=== PATIENT | female | born 1935 | race Caucasian/White ===

== ENCOUNTER 2017-06-24 11:40 | Inpatient (IN) | payer MEDICARE, BC ==
[~2017-06-24] VITALS: Ht 167.6 cm; Wt 64.0 kg
[~2017-06-24 11:40] MED LIST: AMITRIPTYLINE H25 MG PO; ASPIRIN CHEW81 MG PO; CLONAZEPAM0.25 MG PO; FEOSOL45 MG PO; GABAPENTIN100 MG PO; LASIX20 MG PO; LEXAPRO10 MG PO; LOSARTAN POTASS25 MG PO; LOSARTAN-HCTZ1 EACH PEG; MIRALAX17 GM PO; NAMENDA10 MG PO; NEXIUM40 MG PO; NIFEDIPINE ER30 M1 PO; PANTOPRAZOLE SO40 MG PO; SIMVASTATIN40 MG PO; VITAMIN B-121000 MCG PO; alprazolam; furosemide
[2017-06-24] MEDS ORDERED: MORPHINE SULFATE 2 MG/ML SYR IV STA ×2 (11:42→13:10)
[2017-06-24] MEDS ORDERED: SODIUM CHLORIDE 0.9% 1000ML 1,000 ML IV STA (11:42)
[2017-06-24] MEDS ORDERED: ONDANSETRON HCL INJ 2 MG/ML VIAL IV STA (11:42)
[2017-06-24 12:09] LABS: BASOPHILS % 0.3 % (0.0-1.0); EOSINOPHILS # (AUTO) 0.1 (0.0-0.4); EOSINOPHILS % 0.8 % (0.0-6.0); HEMATOCRIT 36.6 % (34.2-44.1); HEMOGLOBIN 11.9 g/dL (12.0-16.0); LYMPHOCYTES # (AUTO) 0.8 (1.0-3.2); LYMPHOCYTES % 8.1 % (18.0-39.1); MEAN CORPUSCULAR HEMOGLOBIN 26.6 pg (28-32); MEAN CORPUSCULAR HGB CONC 32.5 g/dL (31-35); MEAN CORPUSCULAR VOLUME 81.9 fL (81-99); MONOCYTES # (AUTO) 0.5 (0.2-0.8); MONOCYTES % 4.5 % (4.4-11.3); NEUTROPHILS # (AUTO) 8.5 (2.1-6.9); NEUTROPHILS % 85.9 % (38.7-80.0); PLATELET COUNT 261 x10e3/uL (140-360); RED BLOOD COUNT 4.47 x10e6/uL (3.6-5.1); RED CELL DISTRIBUTION WIDTH 21.4 % (11.7-14.4)
[2017-06-24 12:17] LABS: INR 1.03; PROTHROMBIN TIME 12.7 seconds (11.9-14.5)
[2017-06-24 12:18] LABS: PARTIAL THROMBOPLASTIN TIME 30.8 seconds (23.8-35.5)
[2017-06-24 12:26] LABS: ALANINE AMINOTRANSFERASE 20 IU/L (0-55); ALBUMIN 3.7 g/dL (3.5-5.0); ALBUMIN/GLOBULIN RATIO 1.3 (0.8-2.0); ALKALINE PHOSPHATASE 80 IU/L (40-150); AMORPHOUS SEDIMENT,URINE FEW (FEW); BACTERIA,URINE FEW /HPF; BILIRUBIN,URINE NEGATIVE (NEGATIVE); BLOOD UREA NITROGEN 11 mg/dL (7-26); BUN/CREATININE RATIO 14 (6-25); CALCIUM 9.3 mg/dL (8.4-10.2); CARBON DIOXIDE 29 mmol/L (22-29); CHLORIDE 95 mmol/L (98-107); CLARITY,URINE CLEAR (CLEAR); COLOR,URINE YELLOW (YELLOW); CREATINE KINASE 166 IU/L (29-168); CREATININE, SERUM 0.79 mg/dL (0.57-1.11); EPITHELIAL CELLS,URINE RARE /LPF; EST GLOMERULAR FILTRATION RATE > 60 ML/MIN (60-); GLUCOSE 99 mg/dL (74-118); KETONES,URINE NEGATIVE (NEGATIVE); LEUKOCYTE ESTERASE ,URINE NEGATIVE (NEGATIVE); NITRITE,URINE NEGATIVE (NEGATIVE); PROTEIN,URINE DIPSTICK NEGATIVE (NEGATIVE); RBC,URINE 0-5 /HPF (0-5); SODIUM 132 mmol/L (136-145); URINE UROBILINOGEN 0.2 mg/dL (0.2 - 1); WBC,URINE (MAN) 0-5 /HPF (0-5)
--- NOTE | 2017-06-24 12:57 | Diagnostic Imaging Report ---
PROCEDURE:HIP LEFT 2-3 VW (+/- PELVIS) COMPARISON:Abdominal x ray on 06/22/16 INDICATIONS:FALL, LEFT HIP FRACTURE FINDINGS: Limited by body habitus. See conclusion. CONCLUSION: Left femoral neck base fracture with mild superior displacement. Dictated by: Emanuel Kohli M.D. on 06/24/2017 at 12:58 Electronically approved by: Emanuel Kohli M.D. on 06/24/2017 at 12:58
[2017-06-24] MEDS ORDERED: SODIUM CHLORIDE FLUSH 10 ML SYR INJ PRN (13:00)
--- OUTSIDE RECORDS SUMMARY | 2017-06-24 13:41 | XMS REPORT ---
[facility] Address Unknown Phone Unavailable Care Team Providers Care Last Putter Away Name Role Phone [facility] Unavailable Unavailable Problems This patient has no known problems. Allergies, Adverse Reactions, Alerts This patient has no known allergies or adverse reactions. Medications This patient has no known medications. Results Test Description Test Time Test Comments Text Results Atomic Results Result Comments HIP LEFT 2-3 VW (+/- PELVIS) [place] [address] Patient Name: MICHAEL CHADWICK MR #: [id number] : 1935 Age/Sex: 82/F Req #: [id number] Adm Physician: Ordered by: AVA WILSON CLIENT CARE MANAGER Report #: [id number] Location: ER Room/Bed: Procedure: [id number] DX/HIP LEFT 2-3 VW (+/- PELVIS) Exam Date: Exam Time: REPORT STATUS: Signed PROCEDURE: HIP LEFT 2 -3 VW (+/- PELVIS) COMPARISON: Abdominal x ray on 06/22/16 INDICATIONS: FALL, LEFT HIP FRACTURE FINDINGS: Limited by body habitus. See conclusion. CONCLUSION: Left femoral neck base fracture with mild superior displacement. Dictated by: Emanuel Coleman M.D. on 06/24/2017 at 12:58 Electronically approved by: Emanuel Coleman M.D. on 06/24/2017 at 12:58 Dictated By: EMANUEL COLEMAN MD [id number] Transcribed By: KARO on 06/24/17 1255 COPY TO: AVA WILSON NP
[2017-06-24] MEDS: ONDANSETRON HCL INJ 2 MG/ML VIAL IV PRN ×2 (16:45→21:00)
[2017-06-24] MEDS: MORPHINE SULFATE 2 MG/ML SYR IV PRN ×2 (16:46→21:00)
[2017-06-24] MEDS ORDERED: VANCOMYCIN HCL 1 GM in SODIUM CHLORIDE 0.9% 250ML 250 ML IV SCH ×4 (17:00)
[2017-06-24] MEDS ORDERED: QUETIAPINE FUMA25 MG PO (19:15)
[2017-06-24] MEDS ORDERED: LASIX20 MG PO (19:15)
[2017-06-24] MEDS ORDERED: CLONAZEPAM1 MG PO (19:15)
[2017-06-24] MEDS ORDERED: DIVALPROEX SOD250 MG PO (19:15)
[2017-06-24 20:35] VITALS: BP 180/74
[2017-06-24] MEDS ORDERED: ESCITALOPRAM OXALATE 10 MG TAB PO SCH (22:00)
[2017-06-24 22:16] VITALS: BP 180/74
[2017-06-24 22:31] VITALS: BP 180/74
[2017-06-24] MEDS: DIVALPROEX SODIUM 250 MG TAB...DR PO SCH (22:59)
[2017-06-24] MEDS: ESCITALOPRAM OXALATE 10 MG TAB PO SCH (22:59)
[2017-06-24] MEDS: MEMANTINE 10 MG TAB PO SCH (22:59)
[2017-06-24] MEDS: CLONAZEPAM 1 MG TAB PO SCH (22:59)
[2017-06-24] MEDS: QUETIAPINE FUMARATE 25 MG TAB PO SCH (22:59)
[2017-06-25] VITALS (7 sets, daily range): BP systolic 146–173; BP diastolic 62–70
[2017-06-25] MEDS: ONDANSETRON HCL INJ 2 MG/ML VIAL IV PRN (05:45)
[2017-06-25] MEDS: MORPHINE SULFATE 2 MG/ML SYR IV PRN (05:45)
[2017-06-25] MEDS: MEMANTINE 10 MG TAB PO SCH ×2 (09:00→17:15)
[2017-06-25] MEDS: QUETIAPINE FUMARATE 25 MG TAB PO SCH ×3 (09:00→20:15)
[2017-06-25] MEDS: DIVALPROEX SODIUM 250 MG TAB...DR PO SCH ×2 (09:00→17:15)
[2017-06-25] MEDS: CLONAZEPAM 1 MG TAB PO SCH ×2 (09:00→14:31)
[2017-06-25 09:49] LABS: ANION GAP 9.1 mmol/L (8-16); BLOOD UREA NITROGEN 10 mg/dL (7-26); BUN/CREATININE RATIO 15 (6-25); CALCIUM 8.7 mg/dL (8.4-10.2); CARBON DIOXIDE 29 mmol/L (22-29); CHLORIDE 99 mmol/L (98-107); CREATININE, SERUM 0.67 mg/dL (0.57-1.11); EST GLOMERULAR FILTRATION RATE > 60 ML/MIN (60-); GLUCOSE 108 mg/dL (74-118); MAGNESIUM 1.7 MG/DL (1.3-2.1); POTASSIUM 4.1 mmol/L (3.5-5.1); SODIUM 133 mmol/L (136-145)
[2017-06-25] MEDS ORDERED: ACETAMINOPHEN 325 MG TAB PO PRN (10:00)
[2017-06-25] MEDS ORDERED: ACETAMINOPHEN 325 MG SUPP PR PRN (10:00)
[2017-06-25] MEDS ORDERED: ROPIVACAINE 246.25 MG, EPINEPHRINE HCL 1:1000 0.5 MG, CLONIDINE HCL 0.08 MG, KETOROLAC ... INJ NR ×5 (11:30)
[2017-06-25] MEDS ORDERED: TRANEXAMIC ACID 1,000 MG/10 ML ML ONE (11:43)
[2017-06-25] MEDS ORDERED: MUPIROCIN 2% OINT 22 GM TUBE ONE (11:43)
[2017-06-25] MEDS ORDERED: BACITRACIN 50,000 UNIT VIAL ONE (11:43)
[2017-06-25] MEDS ORDERED: VANCOMYCIN 1GM/NS 250 ML 250 ML ONE (12:13)
--- NOTE | 2017-06-25 12:22 | Consultation ---
DATE OF CONSULTATION: June 25, 2017 CHIEF COMPLAINT: Left hip pain. HISTORY OF PRESENT ILLNESS: This patient is a medically frail 82-year-old female who complains of left hip pain. She has a history of significant dementia and the history of present illness is obtained from the . She was reportedly fell, found on the floor by her yesterday morning. He thinks she fell out of bed. She complained of left hip pain and was unable to get up and bear weight on the left leg. She was brought into [facility] ER and had x-rays showing a left hip fracture. Orthopedics was consulted. PAST MEDICAL HISTORY: Diverticulosis, GERD, history of dementia, and hypertension. PAST SURGICAL HISTORY: Colon resection and hernia repair. MEDICATIONS: See MAY. ALLERGIES: PATIENT HAS ALLERGIES TO PENICILLIN, AZITHROMYCIN, CEPHALEXIN, MOMETASONE, TRIAMCINOLONE, SULFA. SOCIAL HISTORY: Patient lives with her . She uses a walker to ambulate. She denies smoking or drinking. PHYSICAL EXAMINATION GENERAL: This is a frail elderly female. She exhibits signs of advanced dementia. She has trouble answering any questions. Her does most of the talking. EXTREMITIES: Inspection of her left hip shows mild swelling in the upper thigh. There is no bruising or skin changes. Any attempts at passive range of motion in the left hip elicit pain. Further exam was deferred due to her advanced dementia. IMAGING: X-rays of her left hip were obtained and show a displaced femoral neck fracture. ASSESSMENT AND PLAN: This is a medically frail 82-year-old female with a left hip fracture. The findings and options were discussed with the family. The risks and benefits of comfort care, conservative management versus surgical intervention with a left hip hemiarthroplasty were explained. The increased risk given her advanced dementia and risks of increasing dementia with general anesthesia as well as the hip fracture were explained. She used a walker with limited mobility prior to the hip fracture. The possibility that she will need to use a wheelchair going forward was stressed. All the findings and options were discussed with her and both her daughters. After some discussion, they wished to proceed with a left hip hemiarthroplasty. All their questions were answered. We will plan on proceeding with a left hip hemiarthroplasty later today. Thank you for the consultation. DICTATED BY: Oscar Peres PA-C Job#: [id number] VAS
[2017-06-25] MEDS ORDERED: ONDANSETRON HCL INJ 2 MG/ML VIAL IV PRN (13:00)
[2017-06-25] MEDS ORDERED: DIPHENHYDRAMINE HCL INJ 50 MG/ML VIAL IM/IV PRN (13:00)
[2017-06-25] MEDS ORDERED: PROMETHAZINE HCL (IM) 25 MG/ML VIAL IM PRN (13:00)
[2017-06-25] MEDS ORDERED: ACETAMINOPHEN 650 MG SUPP PR PRN (13:00)
[2017-06-25] MEDS ORDERED: DOCUSATE SODIUM 100 MG CAP PO PRN (13:00)
[2017-06-25] MEDS ORDERED: KETOROLAC TROMETHAMINE 30 MG/ML VIAL IV PRN (13:00)
--- NOTE | 2017-06-25 13:30 | Operative Report ---
DATE OF PROCEDURE: June 25, 2017 GENERAL OPERATOR: Oscar Peres PA-C The patient was brought to the operating room for induction of anesthesia. Throughout this case, my PA's assistance was necessary for retraction of soft tissue and positioning of the extremity. This allows for efficient and technically successful execution of the operation and is considered medically necessary. PREOPERATIVE DIAGNOSIS: Left femoral neck fracture. POSTOPERATIVE DIAGNOSIS: Left femoral neck fracture. PROCEDURE: Left hip hemiarthroplasty. INDICATIONS: The patient is an 82-year-old lady who has an acute left femoral neck fracture. Her past medical history is significant for advanced dementia. The findings and options have been discussed. The limited benefits of surgical intervention have been discussed. The family state they understand and wish to proceed with surgical intervention. The risks and benefits were further discussed. They stated they understood and wished to proceed. DESCRIPTION OF PROCEDURE: The patient was brought to the operating room and placed under general anesthetic. She was positioned in the right lateral decubitus position. Her left hip was prepped and draped in a sterile manner. A preoperative time out was performed. A direct lateral Hardinge approach was made to the left hip. Abundant subcutaneous edema was encountered. The tensor fascia was split. A self-retaining Charnley retractor was placed. The greater trochanter was noted to have complete avulsion of the gluteus minimus and medius. The hip was brought out into external rotation. The remainder of the anterior capsule was incised and elevated off of the anterior proximal femur. The femoral neck was exposed, and an oscillating saw was used to resect the remainder of the bone. The socket was carefully exposed. A corkscrew was used to remove the femoral head. This was sized at 45 mm. A box cutting osteotome and taper pin reamer were then used to gain entry to the femoral canal. The [employer] Taperloc broaches were impacted into place. A size 8 stem had good canal fill and rotational stability. A standard neck and 45 mm head provided optimal druze of limb length and good stability. The implants were seated, and a final reduction was performed. The hip had been thoroughly irrigated with a shower-tip pulsatile lavage. The anterior capsule was repaired with #2 Ethibond in an interrupted fashion. The remnants of the abductor musculature were repaired to the anterior aspect of the greater trochanter with transosseous stitches. The tensor fascia and gluteal fascia were closed with interrupted #2 Ethibond. The skin was closed with subcuticular Vicryl, Mastisol and Steri-Strips. Estimated blood loss was about 75 mL. At the end of the procedure, all needle and sponge counts were correct. Job#: [id number]
[2017-06-25] MEDS: SODIUM CHLORIDE 0.9% 1000ML 1,000 ML IV SCH ×2 (14:30→19:30)
--- NOTE | 2017-06-25 15:06 | Diagnostic Imaging Report ---
PROCEDURE:X-RAY PELVIS, AP VIEW COMPARISON:left hip radiographs 06/24/2017 INDICATIONS:POST OP HIP LEFT FINDINGS: See impression. CONCLUSION: Interval placement of a left hip prothesis with post-operative changes including swelling and subcutaneous emphysema. No new fractures. Dictated by: Jovany Schaffer M.D. on 06/25/2017 at 15:07 Electronically approved by: Jovany Schaffer M.D. on 06/25/2017 at 15:07
[2017-06-25] MEDS: HYDRALAZINE HCL 20 MG/ML VIAL IV PRN (15:59)
[2017-06-25] MEDS: CELECOXIB 100 MG CAP PO SCH (17:15)
[2017-06-25] MEDS: ESCITALOPRAM OXALATE 10 MG TAB PO SCH (17:15)
[2017-06-25] MEDS: ACETAMINOPHEN 1000 MG/100 ML IV SCH (17:15)
[2017-06-25] MEDS: ASPIRIN 325 MG TAB PO SCH (17:18)
[2017-06-25] MEDS: LOSARTAN POTASSIUM 25 MG TAB PO SCH (17:19)
[2017-06-25] MEDS: VANCOMYCIN 1GM/NS 250 ML 250 ML IV SCH (22:20)
[2017-06-26] VITALS (7 sets, daily range): BP systolic 119–162; BP diastolic 55–81
[2017-06-26] MEDS: ACETAMINOPHEN 1000 MG/100 ML IV SCH ×3 (00:15→12:00)
[2017-06-26] MEDS: HYDRALAZINE HCL 20 MG/ML VIAL IV PRN (06:26)
[2017-06-26 07:04] LABS: BASOPHILS % 0.3 % (0.0-1.0); EOSINOPHILS # (AUTO) 0.4 (0.0-0.4); EOSINOPHILS % 6.8 % (0.0-6.0); HEMATOCRIT 28.4 % (34.2-44.1); HEMOGLOBIN 9.1 g/dL (12.0-16.0); LYMPHOCYTES # (AUTO) 0.6 (1.0-3.2); LYMPHOCYTES % 9.4 % (18.0-39.1); MEAN CORPUSCULAR HEMOGLOBIN 26.8 pg (28-32); MEAN CORPUSCULAR VOLUME 83.5 fL (81-99); MONOCYTES # (AUTO) 0.4 (0.2-0.8); MONOCYTES % 6.7 % (4.4-11.3); NEUTROPHILS # (AUTO) 4.5 (2.1-6.9); NEUTROPHILS % 76.6 % (38.7-80.0); PLATELET COUNT 178 x10e3/uL (140-360); RED CELL DISTRIBUTION WIDTH 21.9 % (11.7-14.4)
[2017-06-26 07:30] LABS: BLOOD UREA NITROGEN 10 mg/dL (7-26); BUN/CREATININE RATIO 15 (6-25); CALCIUM 8.3 mg/dL (8.4-10.2); CARBON DIOXIDE 27 mmol/L (22-29); CHLORIDE 104 mmol/L (98-107); CREATININE, SERUM 0.66 mg/dL (0.57-1.11); EST GLOMERULAR FILTRATION RATE > 60 ML/MIN (60-); GLUCOSE 88 mg/dL (74-118); MAGNESIUM 1.6 MG/DL (1.3-2.1); SODIUM 138 mmol/L (136-145)
[2017-06-26 09:00] LABS: HYPOCHROMASIA SLIGHT; PLATELET ESTIMATE ADEQUATE; PLATELET MORPHOLOGY COMMENT NORMAL; POIKILOCYTOSIS SLIGHT; RBC MORPHOLOGY COMMENT NORMAL
[2017-06-26] MEDS: CELECOXIB 100 MG CAP PO SCH ×2 (09:11→16:44)
[2017-06-26] MEDS: CLONAZEPAM 1 MG TAB PO SCH ×2 (09:11→16:44)
[2017-06-26] MEDS: LOSARTAN POTASSIUM 25 MG TAB PO SCH (09:11)
[2017-06-26] MEDS: MEMANTINE 10 MG TAB PO SCH ×2 (09:11→16:44)
[2017-06-26] MEDS: DIVALPROEX SODIUM 250 MG TAB...DR PO SCH ×2 (09:11→16:44)
[2017-06-26] MEDS: ASPIRIN 325 MG TAB PO SCH ×2 (09:11→16:44)
[2017-06-26] MEDS: VANCOMYCIN 1GM/NS 250 ML 250 ML IV SCH (09:12)
[2017-06-26] MEDS: QUETIAPINE FUMARATE 25 MG TAB PO SCH ×2 (09:12→16:44)
[2017-06-26] MEDS: MORPHINE SULFATE 2 MG/ML SYR IV PRN (09:32)
[2017-06-26] MEDS ORDERED: ACETAMINOPHEN 1000 MG/100 ML IV PRN (13:00)
[2017-06-26] MEDS: ESCITALOPRAM OXALATE 10 MG TAB PO SCH (16:44)
[2017-06-26] MEDS: CALCIUM CARBONATE 500 MG CHEWABLE TABS PO SCH (16:44)
[2017-06-26] MEDS: HYDROCODONE/APAP 5MG-325MG TAB PO PRN (17:53)
[2017-06-27] VITALS (7 sets, daily range): BP systolic 120–147; BP diastolic 54–63
[2017-06-27 06:37] LABS: BASOPHILS % 0.6 % (0.0-1.0); EOSINOPHILS # (AUTO) 0.6 (0.0-0.4); HEMATOCRIT 26.7 % (34.2-44.1); HEMOGLOBIN 8.6 g/dL (12.0-16.0); LYMPHOCYTES # (AUTO) 0.7 (1.0-3.2); LYMPHOCYTES % 13.5 % (18.0-39.1); MEAN CORPUSCULAR HEMOGLOBIN 26.8 pg (28-32); MEAN CORPUSCULAR HGB CONC 32.2 g/dL (31-35); MEAN CORPUSCULAR VOLUME 83.2 fL (81-99); MONOCYTES # (AUTO) 0.3 (0.2-0.8); MONOCYTES % 5.6 % (4.4-11.3); NEUTROPHILS # (AUTO) 3.6 (2.1-6.9); NEUTROPHILS % 69.1 % (38.7-80.0); PLATELET COUNT 169 x10e3/uL (140-360); RED BLOOD COUNT 3.21 x10e6/uL (3.6-5.1)
[2017-06-27 06:55] LABS: % IRON SATURATION 5 % (15-50); BLOOD UREA NITROGEN 17 mg/dL (7-26); BUN/CREATININE RATIO 27 (6-25); CALCIUM 8.4 mg/dL (8.4-10.2); CARBON DIOXIDE 27 mmol/L (22-29); CHLORIDE 102 mmol/L (98-107); CREATININE, SERUM 0.63 mg/dL (0.57-1.11); EST GLOMERULAR FILTRATION RATE > 60 ML/MIN (60-); GLUCOSE 79 mg/dL (74-118); IRON 10 ug/dL (50-170); MAGNESIUM 1.6 MG/DL (1.3-2.1); SODIUM 134 mmol/L (136-145); TOTAL IRON BINDING CAPACITY 196 ug/dL (261-478); TRANSFERRIN 140 mg/dL (180-382)
[2017-06-27 07:18] LABS: FERRITIN 93.94 ng/mL (4.63-204.00)
[2017-06-27 07:31] LABS: FOLATE 16.7 ng/mL (7.0-15.4)
[2017-06-27] MEDS: HYDROCODONE/APAP 5MG-325MG TAB PO PRN (08:17)
[2017-06-27] MEDS: CALCIUM CARBONATE 500 MG CHEWABLE TABS PO SCH ×2 (08:35→16:22)
[2017-06-27] MEDS: CLONAZEPAM 1 MG TAB PO SCH ×2 (08:54→16:22)
[2017-06-27] MEDS: ASPIRIN 325 MG TAB PO SCH ×2 (08:54→16:22)
[2017-06-27] MEDS: LOSARTAN POTASSIUM 25 MG TAB PO SCH (08:54)
[2017-06-27] MEDS: DIVALPROEX SODIUM 250 MG TAB...DR PO SCH ×2 (08:54→16:22)
[2017-06-27] MEDS: QUETIAPINE FUMARATE 25 MG TAB PO SCH (08:54)
[2017-06-27] MEDS: MEMANTINE 10 MG TAB PO SCH ×2 (08:54→16:22)
[2017-06-27] MEDS: CELECOXIB 100 MG CAP PO SCH (08:54)
[2017-06-27] MEDS ORDERED: MAGNESIUM SULFATE 2GM/50ML 50 ML IV ONE (12:45)
[2017-06-27] MEDS ORDERED: SODIUM FERRIC GLUCONATE COMPLX 125 MG in SODIUM CHLORIDE 0.9% 100 ML 100 ML IV ONE (14:00)
[2017-06-27] MEDS ORDERED: POLYETHYLENE GLYCOL 3350 17 GM PACK PO PRN (14:30)
[2017-06-27] MEDS ORDERED: BISACODYL 10 MG SUPP PR PRN (14:30)
[2017-06-27] MEDS: OYST-CAL-D 500MG TABLET PO SCH ×2 (15:55→21:11)
[2017-06-27] MEDS: DOCUSATE SODIUM 100 MG CAP PO SCH ×2 (15:55→21:11)
[2017-06-27] MEDS: FAMOTIDINE 20 MG TAB PO SCH (15:55)
[2017-06-27] MEDS: ENOXAPARIN 30 MG/0.3 ML SYR SC SCH ×2 (15:55→21:11)
[2017-06-27] MEDS ORDERED: MAGNESIUM SULFATE 2GM/50ML 50 ML IV SCH (16:15)
[2017-06-27] MEDS: FERROUS SULFATE 325 MG TAB PO SCH (16:22)
[2017-06-27] MEDS: ESCITALOPRAM OXALATE 10 MG TAB PO SCH (16:22)
[2017-06-27] MEDS: ASCORBIC ACID 500 MG TAB PO SCH (16:22)
[2017-06-27] MEDS: ZINC SULFATE 220 MG CAP PO SCH (16:22)
[2017-06-27] MEDS: MAGNESIUM OXIDE 400 MG TAB PO SCH (16:22)
[2017-06-27] MEDS: CELECOXIB 200 MG CAP PO SCH (16:22)
[2017-06-27] MEDS ORDERED: ENOXAPARIN 30 MG/0.3 ML SYR SC SCH (21:00)
[2017-06-28] VITALS (8 sets, daily range): BP systolic 121–130; BP diastolic 58–76
[2017-06-28 06:54] LABS: BASOPHILS % 0.4 % (0.0-1.0); EOSINOPHILS # (AUTO) 0.6 (0.0-0.4); EOSINOPHILS % 12.2 % (0.0-6.0); HEMATOCRIT 27.3 % (34.2-44.1); HEMOGLOBIN 8.6 g/dL (12.0-16.0); LYMPHOCYTES # (AUTO) 0.9 (1.0-3.2); MEAN CORPUSCULAR HEMOGLOBIN 26.6 pg (28-32); MEAN CORPUSCULAR HGB CONC 31.5 g/dL (31-35); MEAN CORPUSCULAR VOLUME 84.5 fL (81-99); MONOCYTES # (AUTO) 0.5 (0.2-0.8); NEUTROPHILS # (AUTO) 3.1 (2.1-6.9); NEUTROPHILS % 61.2 % (38.7-80.0); PLATELET COUNT 202 x10e3/uL (140-360); RED BLOOD COUNT 3.23 x10e6/uL (3.6-5.1); RED CELL DISTRIBUTION WIDTH 22.1 % (11.7-14.4)
[2017-06-28 07:17] LABS: ANION GAP 10.3 mmol/L (8-16); BLOOD UREA NITROGEN 17 mg/dL (7-26); BUN/CREATININE RATIO 29 (6-25); CALCIUM 8.5 mg/dL (8.4-10.2); CARBON DIOXIDE 30 mmol/L (22-29); CHLORIDE 100 mmol/L (98-107); CREATININE, SERUM 0.58 mg/dL (0.57-1.11); EST GLOMERULAR FILTRATION RATE > 60 ML/MIN (60-); GLUCOSE 80 mg/dL (74-118); MAGNESIUM 1.6 MG/DL (1.3-2.1); POTASSIUM 4.3 mmol/L (3.5-5.1); SODIUM 136 mmol/L (136-145)
[2017-06-28] MEDS: FAMOTIDINE 20 MG TAB PO SCH ×2 (07:30→16:40)
[2017-06-28] MEDS: MULTIVITAMINS/MINERALS TAB PO SCH (09:00)
[2017-06-28] MEDS: ENOXAPARIN 30 MG/0.3 ML SYR SC SCH ×2 (09:00→21:03)
[2017-06-28] MEDS: MEMANTINE 10 MG TAB PO SCH ×2 (09:00→16:40)
[2017-06-28] MEDS: ZINC SULFATE 220 MG CAP PO SCH ×2 (09:00→16:40)
[2017-06-28] MEDS: ASCORBIC ACID 500 MG TAB PO SCH ×2 (09:00→16:40)
[2017-06-28] MEDS: OYST-CAL-D 500MG TABLET PO SCH ×3 (09:00→21:03)
[2017-06-28] MEDS: MAGNESIUM OXIDE 400 MG TAB PO SCH ×2 (09:00→16:40)
[2017-06-28] MEDS: DIVALPROEX SODIUM 250 MG TAB...DR PO SCH ×2 (09:00→16:40)
[2017-06-28] MEDS: CLONAZEPAM 1 MG TAB PO SCH ×2 (09:00→16:40)
[2017-06-28 09:23] LABS: PLATELET ESTIMATE ADEQUATE; PLATELET MORPHOLOGY COMMENT NORMAL
[2017-06-28 09:24] LABS: ANISOCYTOSIS MODERATE; POIKILOCYTOSIS SLIGHT; RBC MORPHOLOGY COMMENT ABNORMAL
[2017-06-28] MEDS: ASPIRIN 325 MG TAB PO SCH ×2 (10:20→16:40)
[2017-06-28] MEDS: FERROUS SULFATE 325 MG TAB PO SCH ×2 (10:20→16:40)
[2017-06-28] MEDS: CALCIUM CARBONATE 500 MG CHEWABLE TABS PO SCH ×2 (10:20→16:40)
[2017-06-28] MEDS: DOCUSATE SODIUM 100 MG CAP PO SCH ×3 (10:20→21:03)
[2017-06-28] MEDS: CELECOXIB 200 MG CAP PO SCH ×2 (10:20→16:40)
[2017-06-28] MEDS: LOSARTAN POTASSIUM 25 MG TAB PO SCH (10:21)
[2017-06-28] MEDS: PANTOPRAZOLE 40 MG 10ML VIAL IV SCH (16:40)
[2017-06-28] MEDS: ESCITALOPRAM OXALATE 10 MG TAB PO SCH (16:40)
[2017-06-28] MEDS: QUETIAPINE FUMARATE 25 MG TAB PO SCH (16:40)
--- NOTE | 2017-06-28 17:02 | Consultation ---
DATE OF CONSULTATION: June 28, 2017 UROLOGY CONSULTATION REASON FOR CONSULTATION: Urinary retention. HISTORY OF PRESENT ILLNESS: Alejandro Molina is an 82-year-old woman with a history of urinary tract infections. The patient had a fall, had fractured her hip, and she subsequently underwent a left hemiarthroplasty on June 25, 2017. Postoperatively, the patient had some urinary issues and had difficulty urinating. A Yu catheter was placed with 600 mL of urinary retention. The patient does not have any history of urolithiasis. She has never seen a urologist and has never had urological surgery. PAST MEDICAL AND SURGICAL HISTORY 1. History of diverticulitis. 2. Status post colon resection. 3. Status post hernia repair. 4. Gastroesophageal reflux disease. 5. Dementia. 6. Hypertension. 7. 3 para 3 by spontaneous vaginal delivery. 8. Hip hemiarthroplasty as mentioned above. MEDICATIONS: Please refer to the MAR. ALLERGIES: PLEASE REFER TO THE MAR. SOCIAL HISTORY: The patient was a nonsmoker and nondrinker. 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 The patient has a supportive and daughter at the bedside. FAMILY HISTORY: Noncontributory to the active urological problems. REVIEW OF SYSTEMS: Consistent with the above history of present illness and past medical history. Otherwise, negative for all other systems. PHYSICAL EXAMINATION GENERAL: Elderly woman, lying in bed, in no apparent distress. VITALS: She is currently afebrile. Her vital signs are currently stable. ABDOMEN: Soft, nondistended, and nontender without costovertebral angle tenderness. Kidneys are not palpable. Without hepatosplenomegaly. GENITOURINARY: There is a Yu catheter in place draining clear urine out. For the remaining physical examination systems, please refer to the admission history and physical in the chart. LABORATORY STUDIES: Urine culture is pending. White blood cell count is 5010, hemoglobin 8.6, and platelets 202,000. The patient's sodium is normal now; it was slightly low. The patient's calcium is also normal now, was slightly low. Her creatinine is 0.58. Urinalysis is unremarkable. IMAGING: There is no urologically significant imaging during this hospitalization. The patient had a CT of the abdomen and pelvis exactly 1 year ago. It showed a 1.4-cm uterine fibroid. It showed unremarkable kidneys and adrenals. ASSESSMENT 1. Urinary retention for 600 mL. 2. Yu catheter in situ. 3. Urinary tract infections. 4. Anemia. 5. Hyponatremia that improved. 6. Hypocalcemia that improved. PLAN 1. I would recommend leaving the Yu catheter in place at least for the next couple of weeks. 2. Ideally, the patient should follow up in the office as soon as she is an outpatient so we may be able to perform a urodynamic study and ensure the patient has appropriate bladder function and emptying. Thank you very much for involving us in the care of your patient. We will be happy to follow her along with you, as well as an outpatient. Job#: [id number] SUSIE cc:MD Wiley Harrington MD
[2017-06-29] VITALS (7 sets, daily range): BP systolic 118–163; BP diastolic 65–80
[2017-06-29 06:34] LABS: BASOPHILS % 0.4 % (0.0-1.0); EOSINOPHILS # (AUTO) 0.5 (0.0-0.4); EOSINOPHILS % 10.6 % (0.0-6.0); HEMATOCRIT 24.8 % (34.2-44.1); HEMOGLOBIN 7.8 g/dL (12.0-16.0); LYMPHOCYTES # (AUTO) 1.2 (1.0-3.2); MEAN CORPUSCULAR HEMOGLOBIN 26.8 pg (28-32); MEAN CORPUSCULAR HGB CONC 31.5 g/dL (31-35); MEAN CORPUSCULAR VOLUME 85.2 fL (81-99); MONOCYTES # (AUTO) 0.5 (0.2-0.8); MONOCYTES % 9.4 % (4.4-11.3); NEUTROPHILS # (AUTO) 2.7 (2.1-6.9); NEUTROPHILS % 55.2 % (38.7-80.0); PLATELET COUNT 208 x10e3/uL (140-360); RED BLOOD COUNT 2.91 x10e6/uL (3.6-5.1); RED CELL DISTRIBUTION WIDTH 22.3 % (11.7-14.4)
[2017-06-29 06:51] LABS: ANION GAP 10.2 mmol/L (8-16); BLOOD UREA NITROGEN 21 mg/dL (7-26); BUN/CREATININE RATIO 30 (6-25); CALCIUM 8.7 mg/dL (8.4-10.2); CARBON DIOXIDE 29 mmol/L (22-29); CHLORIDE 99 mmol/L (98-107); CREATININE, SERUM 0.69 mg/dL (0.57-1.11); EST GLOMERULAR FILTRATION RATE > 60 ML/MIN (60-); GLUCOSE 82 mg/dL (74-118); MAGNESIUM 1.8 MG/DL (1.3-2.1); POTASSIUM 4.2 mmol/L (3.5-5.1); SODIUM 134 mmol/L (136-145)
[2017-06-29] MEDS: FAMOTIDINE 20 MG TAB PO SCH ×2 (07:30→16:30)
[2017-06-29] MEDS: CALCIUM CARBONATE 500 MG CHEWABLE TABS PO SCH ×2 (08:00→17:00)
[2017-06-29] MEDS: CELECOXIB 200 MG CAP PO SCH ×2 (08:00→17:00)
[2017-06-29] MEDS: PANTOPRAZOLE 40 MG 10ML VIAL IV SCH ×2 (09:00→20:04)
[2017-06-29] MEDS: ZINC SULFATE 220 MG CAP PO SCH ×3 (09:00→20:24)
[2017-06-29] MEDS: MAGNESIUM OXIDE 400 MG TAB PO SCH ×3 (09:00→20:24)
[2017-06-29] MEDS: MULTIVITAMINS/MINERALS TAB PO SCH (09:00)
[2017-06-29] MEDS: ASCORBIC ACID 500 MG TAB PO SCH ×2 (09:00→20:20)
[2017-06-29] MEDS: DOCUSATE SODIUM 100 MG CAP PO SCH ×4 (09:00→20:23)
[2017-06-29] MEDS: OYST-CAL-D 500MG TABLET PO SCH ×4 (09:00→20:24)
[2017-06-29] MEDS: ENOXAPARIN 30 MG/0.3 ML SYR SC SCH ×2 (09:00→20:05)
[2017-06-29] MEDS: CLONAZEPAM 1 MG TAB PO SCH ×3 (09:00→20:24)
[2017-06-29 11:10] LABS: EOSINOPHILS % (MANUAL) 13 % (0-7); LYMPHOCYTES % (MANUAL) 29 % (19-48); MONOCYTES % (MANUAL) 6 % (3.4-9.0); NEUTROPHILS % (MANUAL) 52 % (40-74); RBC MORPHOLOGY COMMENT ABNORMAL
[2017-06-29 11:11] LABS: ANISOCYTOSIS MODERATE
[2017-06-29] MEDS ORDERED: SODIUM CHLORIDE 0.9% 250ML 250 ML IV SCH (11:15)
[2017-06-29] MEDS ORDERED: MEGACE 400MG/ 10ML CUP PO SCH (11:15)
[2017-06-29] MEDS: LOSARTAN POTASSIUM 25 MG TAB PO SCH (13:00)
[2017-06-29] MEDS: DIVALPROEX SODIUM 250 MG TAB...DR PO SCH ×3 (13:00→20:23)
[2017-06-29] MEDS: ASPIRIN 325 MG TAB PO SCH ×3 (13:00→20:23)
[2017-06-29] MEDS: FERROUS SULFATE 325 MG TAB PO SCH ×4 (13:00→20:23)
[2017-06-29] MEDS: QUETIAPINE FUMARATE 25 MG TAB PO SCH (13:00)
[2017-06-29] MEDS: MEMANTINE 10 MG TAB PO SCH ×3 (13:00→20:24)
[2017-06-29] MEDS ORDERED: SODIUM CHLORIDE 0.9% 250ML 250 ML ONE ×2 (15:58→22:41)
[2017-06-29] MEDS ORDERED: CLONAZEPAM 1 MG TAB PO SCH (17:00)
[2017-06-29] MEDS: ESCITALOPRAM OXALATE 10 MG TAB PO SCH ×3 (17:00→20:24)
[2017-06-29] MEDS: MEGACE 400MG/ 10ML CUP PO SCH ×2 (20:05→20:24)
[2017-06-29] MEDS ORDERED: PANTOPRAZOLE 40 MG 10ML VIAL IV STA (22:41)
[2017-06-29] MEDS ORDERED: PANTOPRAZOL 40MG/SOD CHL 0.9% 250 ML IV SCH (22:45)
[2017-06-30] VITALS (8 sets, daily range): BP systolic 144–192; BP diastolic 62–73
[2017-06-30] MEDS: PANTOPRAZOL 40MG/SOD CHL 0.9% 50 ML IV SCH ×5 (00:29→21:26)
[2017-06-30 07:00] LABS: BASOPHILS % 0.5 % (0.0-1.0); EOSINOPHILS # (AUTO) 0.6 (0.0-0.4); EOSINOPHILS % 9.7 % (0.0-6.0); HEMATOCRIT 27.7 % (34.2-44.1); HEMOGLOBIN 9.2 g/dL (12.0-16.0); LYMPHOCYTES # (AUTO) 0.9 (1.0-3.2); LYMPHOCYTES % 15.6 % (18.0-39.1); MEAN CORPUSCULAR HEMOGLOBIN 26.7 pg (28-32); MEAN CORPUSCULAR HGB CONC 33.2 g/dL (31-35); MEAN CORPUSCULAR VOLUME 80.5 fL (81-99); MONOCYTES # (AUTO) 0.7 (0.2-0.8); MONOCYTES % 11.4 % (4.4-11.3); NEUTROPHILS # (AUTO) 3.6 (2.1-6.9); NEUTROPHILS % 60.6 % (38.7-80.0); PLATELET COUNT 188 x10e3/uL (140-360); RED BLOOD COUNT 3.44 x10e6/uL (3.6-5.1); RED CELL DISTRIBUTION WIDTH 18.8 % (11.7-14.4)
[2017-06-30 07:29] LABS: BLOOD UREA NITROGEN 21 mg/dL (7-26); BUN/CREATININE RATIO 32 (6-25); CALCIUM 8.3 mg/dL (8.4-10.2); CARBON DIOXIDE 28 mmol/L (22-29); CHLORIDE 100 mmol/L (98-107); CREATININE, SERUM 0.65 mg/dL (0.57-1.11); EST GLOMERULAR FILTRATION RATE > 60 ML/MIN (60-); GLUCOSE 95 mg/dL (74-118); MAGNESIUM 1.6 MG/DL (1.3-2.1); SODIUM 133 mmol/L (136-145)
[2017-06-30] MEDS: FAMOTIDINE 20 MG TAB PO SCH ×2 (07:30→16:30)
[2017-06-30] MEDS ORDERED: IRON SUCROSE 300 MG in SODIUM CHLORIDE 0.9% 100 ML 100 ML IV SCH (08:00)
[2017-06-30] MEDS: CALCIUM CARBONATE 500 MG CHEWABLE TABS PO SCH ×2 (08:00→16:42)
[2017-06-30] MEDS: PANTOPRAZOLE 40 MG 10ML VIAL IV SCH ×2 (08:50→20:28)
[2017-06-30] MEDS: MEMANTINE 10 MG TAB PO SCH ×2 (09:00→20:25)
[2017-06-30] MEDS: CLONAZEPAM 1 MG TAB PO SCH ×2 (09:00→20:25)
[2017-06-30] MEDS: DIVALPROEX SODIUM 250 MG TAB...DR PO SCH ×2 (09:00→20:24)
[2017-06-30] MEDS ORDERED: MEGACE 400MG/ 10ML CUP PO SCH (09:00)
[2017-06-30] MEDS: MAGNESIUM OXIDE 400 MG TAB PO SCH ×2 (09:00→20:25)
[2017-06-30] MEDS: ASCORBIC ACID 500 MG TAB PO SCH ×2 (09:00→20:25)
[2017-06-30] MEDS: QUETIAPINE FUMARATE 25 MG TAB PO SCH ×2 (09:00→20:27)
[2017-06-30] MEDS: OYST-CAL-D 500MG TABLET PO SCH ×3 (09:00→20:25)
[2017-06-30] MEDS: LOSARTAN POTASSIUM 25 MG TAB PO SCH ×2 (09:00→16:39)
[2017-06-30] MEDS: FERROUS SULFATE 325 MG TAB PO SCH ×2 (09:00→20:25)
[2017-06-30] MEDS: DOCUSATE SODIUM 100 MG CAP PO SCH ×3 (09:00→20:24)
[2017-06-30] MEDS: ZINC SULFATE 220 MG CAP PO SCH ×2 (09:00→20:25)
[2017-06-30] MEDS: MULTIVITAMINS/MINERALS TAB PO SCH (09:00)
[2017-06-30 09:31] LABS: BAND NEUTROPHILS % (MANUAL) 2 %; EOSINOPHILS % (MANUAL) 5 % (0-7); LYMPHOCYTES % (MANUAL) 19 % (19-48); MONOCYTES % (MANUAL) 10 % (3.4-9.0); NEUTROPHILS % (MANUAL) 62 % (40-74)
[2017-06-30 09:32] LABS: ANISOCYTOSIS SLIGHT; HYPOCHROMASIA SLIGHT; PLATELET ESTIMATE ADEQUATE; PLATELET MORPHOLOGY COMMENT NORMAL; RBC MORPHOLOGY COMMENT ABNORMAL
[2017-06-30] MEDS: ENOXAPARIN 30 MG/0.3 ML SYR SC SCH ×2 (09:32→20:25)
[2017-06-30] MEDS: HYDRALAZINE HCL 20 MG/ML VIAL IV PRN ×3 (12:31→21:27)
[2017-06-30] MEDS: ESCITALOPRAM OXALATE 10 MG TAB PO SCH ×2 (16:39→16:45)
[2017-06-30] MEDS: MEGACE 400MG/ 10ML CUP PO SCH (20:25)
[2017-07-01] VITALS: BP 127/58
[2017-07-01] MEDS: PANTOPRAZOL 40MG/SOD CHL 0.9% 50 ML IV SCH ×4 (01:30→16:30)
[2017-07-01 04:00] VITALS: BP 172/73
[2017-07-01] MEDS: HYDRALAZINE HCL 20 MG/ML VIAL IV PRN ×2 (06:20→13:15)
[2017-07-01 06:47] LABS: BASOPHILS % 0.4 % (0.0-1.0); EOSINOPHILS # (AUTO) 0.6 (0.0-0.4); EOSINOPHILS % 7.7 % (0.0-6.0); HEMATOCRIT 28.4 % (34.2-44.1); HEMOGLOBIN 9.4 g/dL (12.0-16.0); LYMPHOCYTES # (AUTO) 1.1 (1.0-3.2); LYMPHOCYTES % 13.5 % (18.0-39.1); MEAN CORPUSCULAR HEMOGLOBIN 27.2 pg (28-32); MEAN CORPUSCULAR HGB CONC 33.1 g/dL (31-35); MEAN CORPUSCULAR VOLUME 82.1 fL (81-99); MONOCYTES % 13.1 % (4.4-11.3); NEUTROPHILS % 63.5 % (38.7-80.0); PLATELET COUNT 201 x10e3/uL (140-360); RED BLOOD COUNT 3.46 x10e6/uL (3.6-5.1); RED CELL DISTRIBUTION WIDTH 19.6 % (11.7-14.4)
[2017-07-01 07:29] LABS: ANION GAP 8.8 mmol/L (8-16); BLOOD UREA NITROGEN 18 mg/dL (7-26); BUN/CREATININE RATIO 29 (6-25); CALCIUM 8.4 mg/dL (8.4-10.2); CARBON DIOXIDE 29 mmol/L (22-29); CHLORIDE 104 mmol/L (98-107); CREATININE, SERUM 0.62 mg/dL (0.57-1.11); EST GLOMERULAR FILTRATION RATE > 60 ML/MIN (60-); GLUCOSE 95 mg/dL (74-118); POTASSIUM 3.8 mmol/L (3.5-5.1); SODIUM 138 mmol/L (136-145)
[2017-07-01] MEDS: FAMOTIDINE 20 MG TAB PO SCH ×2 (07:30→16:30)
[2017-07-01 07:40] VITALS: BP 172/73
[2017-07-01] MEDS: FERROUS SULFATE 325 MG TAB PO SCH (07:52)
[2017-07-01] MEDS: DOCUSATE SODIUM 100 MG CAP PO SCH ×2 (07:52→15:00)
[2017-07-01] MEDS: MULTIVITAMINS/MINERALS TAB PO SCH (07:52)
[2017-07-01] MEDS: ENOXAPARIN 30 MG/0.3 ML SYR SC SCH (07:52)
[2017-07-01] MEDS: CALCIUM CARBONATE 500 MG CHEWABLE TABS PO SCH ×2 (07:52→17:00)
[2017-07-01] MEDS: PANTOPRAZOLE 40 MG 10ML VIAL IV SCH (07:52)
[2017-07-01] MEDS: MAGNESIUM OXIDE 400 MG TAB PO SCH (07:52)
[2017-07-01] MEDS: OYST-CAL-D 500MG TABLET PO SCH ×2 (07:53→15:00)
[2017-07-01] MEDS: ZINC SULFATE 220 MG CAP PO SCH (07:53)
[2017-07-01] MEDS: ASCORBIC ACID 500 MG TAB PO SCH (07:53)
[2017-07-01 08:01] VITALS: BP 147/66
[2017-07-01] MEDS: CLONAZEPAM 1 MG TAB PO SCH (09:00)
[2017-07-01] MEDS: MEMANTINE 10 MG TAB PO SCH (09:00)
[2017-07-01] MEDS: DIVALPROEX SODIUM 250 MG TAB...DR PO SCH (09:00)
[2017-07-01] MEDS: QUETIAPINE FUMARATE 25 MG TAB PO SCH (09:00)
[2017-07-01] MEDS: LOSARTAN POTASSIUM 25 MG TAB PO SCH (09:00)
--- NOTE | 2017-07-01 10:07 | Consultation ---
DATE OF CONSULTATION: July 01, 2017 Ms. Molina is an 82-year-old white female very well known to me for iron deficiency anemia. The patient had just completed her Infed infusions in my office. HISTORY OF PAST ILLNESSES: History of dementia, history of hypertension. SOCIAL HISTORY: Noncontributory. FAMILY HISTORY: Noncontributory. ALLERGIES 1. ZITHROMAX. 2. CEPHALEXIN. 3. PENICILLIN. 4. SULFA. MEDICATIONS: At this time: 1. Protonix. 2. Sodium chloride. 3. Hydralazine. 4. Losartan. 5. Tylenol. 6. Ketorolac. 7. Ondansetron. 8. Promethazine. 9. Calcium carbonate. 10. Multivitamins. 11. Pepcid. 12. Quetiapine. 13. Bisacodyl. 14. Docusate. 15. Aspirin. 16. Ascorbic acid. 17. Lovenox. 18. Celecoxib. 19. Clonazepam. 20. Divalproex. 21. Magnesium. 22. Memantine. 23. Zinc sulfate. 24. Ferrous sulfate. 25. Escitalopram. REVIEW OF SYSTEMS HEENT: Normal. CARDIAC: History of hypertension. RESPIRATORY: Normal. GI: Normal. : Normal. MUSCULOSKELETAL: Left hip fracture. ELECTROTYPE FINISHER: History of dementia. PHYSICAL EXAMINATION GENERAL: A rather thin-built female. Anemic. No palpable adenopathy. HEART: Within normal limits. LUNGS: Clear. ABDOMEN: Soft. There is no hepatosplenomegaly. RECTAL: Vaginal examination deferred. CENTRAL NERVOUS SYSTEM: Could not be examined. : The patient does have a Yu catheter. LAB INVESTIGATIONS: Of interest show a hemoglobin of 11.9, white count 9900 and platelets of 261,000 dated June 24, 2017. Subsequently, dropped down to 7.8 on June 29, 2017. The patient was transfused to 9.2. Chemistry shows a sodium of 132, potassium 4, chloride 95, CO2 29, BUN 11, creatinine 0.7. B12 level high at 1816. Folic acid level high at 16.7. IMAGING: Shows x-ray of the hip left femoral neck based fracture with some displacement. X-ray of the pelvis also showed interval placement of left hip prosthesis with postoperative changes, including swelling and subcutaneous emphysema. IMPRESSION 1. Left femoral fracture. 2. Anemia of blood loss. 3. Left hip prosthesis placement. 4. Hypertension. 5. Dementia. 6. Anxiety disorder. 7. Depression. 8. Stool for occult blood positive. PLAN, COMMENTS AND SUGGESTIONS: Continue to watch CBC. Discontinue aspirin. Discontinue ketorolac. Discontinue the celecoxib. I will confine myself to hematology. The patient is very well known to me for a few years. Job#: [id number] RI cc:MD ROXANN SHAFER MD RONALD W. KILLAM, MD
[2017-07-01 12:27] VITALS: BP 168/71
--- NOTE | 2017-07-01 15:55 | Operative Report ---
DATE OF PROCEDURE: July 01, 2017 REFERRING PHYSICIAN: Ai Loaiza MD PROCEDURE PERFORMED: Esophagogastroduodenoscopy. INDICATIONS FOR ESOPHAGOGASTRODUODENOSCOPY: Anemia, history of dark stools. MEDICATION: Patient was done under MAC. Please see anesthesiologist's note. PROCEDURE: With patient in left lateral decubitus position, flexible fiberoptic Olympus gastroscope was introduced into the esophagus under direct visualization without any difficulty. There was some patchy erythema noted in distal esophagus. The scope was then advanced with ease into the stomach traversing a small sliding hiatal hernia. The mucosa overlying the antrum and the body revealed some diffuse erythema and low-grade to moderate edema and biopsies were obtained sent to stain for H. pylori. Pylorus appeared to be of normal contour and shape, was intubated with ease and the scope was advanced all the way to the 2nd portion of the duodenum. The scope was then withdrawn slowly and mucosa overlying the proximal 2nd portion and the duodenal bulb appeared to be within normal limits. The scope was then withdrawn back into the stomach and retroflexed and the mucosa overlying the fundus and the cardia appeared to be within normal limits. The scope was then straightened out. The stomach was decompressed. Scope subsequently withdrawn. Patient tolerated the procedure well. IMPRESSION: 1. Distal esophagitis, mild. 2. Small sliding hiatal hernia. 3. Gastritis biopsied. Biopsies sent to stain for H. pylori. PLAN: Follow up histology. Continue current therapy. Will consider adding Carafate 1 gram p.o. a.c. t.i.d. and nightly. Job#: [id number] DG cc:AI LOAIZA MD
[2017-07-01 16:22] VITALS: BP 154/67
[2017-07-01] MEDS ORDERED: SUCRALFATE 1 GM TAB PO SCH (16:30)
[2017-07-01] MEDS ORDERED: SUCRALFATE 1 GM/10 ML SUSP NG SCH (16:45)
[2017-07-01] MEDS: ESCITALOPRAM OXALATE 10 MG TAB PO SCH (17:00)
[2017-07-01] MEDS ORDERED: MAGNESIUM SULFATE 2GM/50ML 50 ML IV ONE (17:30)
[2017-07-01] MEDS ORDERED: PROPOFOL IV EMULSION 10 MG/ML 20 ML VIAL ONE (17:43)
[2017-07-01] MEDS ORDERED: LIDOCAINE HCL 2% LOCAL INJ 5 ML SDV VIAL INJ ONE (17:43)
[2017-07-01] MEDS ORDERED: FERROUS SULFAT325 MG PO (18:08)
[2017-07-01] MEDS ORDERED: NAMENDA10 MG PO (18:08)
[2017-07-01] MEDS ORDERED: SUCRALFATE1 G/10 ML NG (18:08)
[2017-07-01] MEDS ORDERED: PROMETHAZI25 MG/1 M2 IM (18:08)
[2017-07-01] MEDS ORDERED: Multivitamins/Minerals PO (18:08)
[2017-07-01] MEDS ORDERED: COLACE100 M1 PO (18:08)
[2017-07-01] MEDS ORDERED: ACETAMINOPHEN325 M1 PO (18:08)
[2017-07-01] MEDS ORDERED: DULCOLAX SUPP10 MG PR (18:08)
[2017-07-01] MEDS ORDERED: Calcium Carbonate PO (18:08)
[2017-07-01] MEDS ORDERED: ACETAMINOPHEN650 MG PR (18:08)
[2017-07-01] MEDS ORDERED: DIPHENHYDR50 MG/1 M1 IM/IV (18:08)
[2017-07-01] MEDS ORDERED: ASCORBIC ACID500 MG PO (18:08)
[2017-07-01] MEDS ORDERED: CLONAZEPAM1 MG PO (18:08)
[2017-07-01] MEDS ORDERED: Megestrol Acetate PO (18:08)
[2017-07-01] MEDS ORDERED: MIRALAX17 GM PO (18:08)
[2017-07-01] MEDS ORDERED: FAMOTIDINE20 MG PO (18:08)
[2017-07-01] MEDS ORDERED: DEPAKOTE250 MG PO (18:08)
[2017-07-01] MEDS ORDERED: ZINC SULFATE220 M1 PO (18:08)
[2017-07-01] MEDS ORDERED: LOVENOX30 MG/0.3 SC (18:08)
[2017-07-01] MEDS ORDERED: Calcium Carbonate 500MG Chew PO (18:08)
[2017-07-01] MEDS ORDERED: MAGNESIUM OXID400 MG PO (18:08)
--- NOTE | 2017-07-01 19:24 | Discharge Summary ---
PERTINENT HISTORY AND PHYSICAL FINDINGS: Ms. Molina is an 82-year-old female who presented on June 24, 2017, after getting out of bed and falling. It was not known whether she tripped, had loss of consciousness or hit anything while falling. The patient has underlying dementia, and we were unable to obtain the details of the history of present illness. After the fall, the patient walked a short distance to the restroom with a rolling walker. PAST MEDICAL HISTORY: Positive for gastroesophageal reflux disease, hypertension, diverticulitis, dementia, anxiety and depression. She has a history of abdominal hernia repair, colon resection. ALLERGIES: ALLERGIC TO PENICILLIN, AZITHROMYCIN, CEPHALEXIN, SULFA, TRIAMCINOLONE, MOMETASONE. ADMITTING DIAGNOSES: Included 1. Left lower extremity pain status post fall. 2. Hypertension. 3. Dementia. 4. Depression/anxiety. DISCHARGE DIAGNOSES: Include 1. Left femoral neck fracture status post hemiarthroplasty which was done on June 25, 2017, by Dr. Wiley Alvarado. 2. Hypertension. 3. Dementia. 4. Depression/anxiety. 5. Urinary retention. 6. Hypomagnesemia. 7. Hyponatremia, resolved. Postoperatively, the patient was moving very slowly with physical therapy, was not very awake, was difficult to arouse. She was stuporous, not using her incentive spirometer. She had been scheduled for an outpatient iron infusion by Dr. Combs, according to the family, on the ; and Dr. Combs with hematology was consulted. His impression included anemia of blood loss and stool for occult blood positive, has recommended that CBC continue to be watched. Aspirin was discontinued, as were Ketoralac and celecoxib. The patient had urinary retention, and a Yu catheter had to be placed. Urology, Dr. Arora, was consulted. She had urinary retention of 600 mL and a history of urinary tract infections, and it was recommended that the Yu catheter be left in place for at least the next few weeks. Outpatient urodynamic study was recommended. Memantine and Seroquel were continued. However, the Seroquel dosage was significantly decreased to about a fourth of what she was on. It was also noticed that with decreasing her other psychiatric meds her altered mental status improved. She received iron supplementation while here, and she had a fecal occult blood test that was positive. Hematology continued to follow. She received p.o. iron supplements. There was no B12 or folate deficiency, and she was transfused with 2 units of blood on June 29. EGD was completed today, on July 01, by gastroenterology, Dr. Hernandez. He determined that the patient had mild distal esophagitis, a small sliding hiatal hernia, and gastritis was biopsied, sent to stain for H. pylori. On the , hemoglobin was 9.1, hematocrit 28.4, WBC 5.84, platelets 178, BUN 10 and creatinine 0.66. Today, on the day of discharge, sodium 138, potassium 3.8, chloride 104, CO2 29, BUN 18, creatinine 0.62, glucose 95, WBC 7.93, hemoglobin 9.4, hematocrit 28.4, platelets 204, GFR greater than 60, magnesium 1.5. Urine culture and sensitivity collected on June 27 has not shown any growth. Patient is much more awake, still has underlying dementia. She sat on the side of the bed today with physical therapy, per the family. PHYSICAL EXAMINATION VITAL SIGNS: Temperature 98.2, heart rate 95, blood pressure 147/66, respirations 18, oxygen saturation 94%, maximum temperature 100.1. Intake and output: 1230 mL in, 620 mL out. GENERAL: Supine with head of bed elevated. Awake, alert, slow to respond to questions. LUNGS: Clear to auscultation. Respiratory pattern even and unlabored. HEENT: Extraocular eye movements intact. NECK: Supple. CARDIOVASCULAR: Regular rate and rhythm. No murmur. ABDOMEN: Bowel sounds positive. Soft, nontender. EXTREMITIES: With no pitting edema. Left hip dressing clean, dry and intact. No signs or symptoms of DVT. NEUROLOGICAL: GCS of 14--Eye 4, verbal 4, motor 6. [facility] She is to continue on a GI soft diet. She had been n.p.o. for the EGD procedure. Activity level as tolerated. Encouraged physical therapy. Dictated by: Doug Haywood NP AI PATEL MD Job#: [id number] EV
== END 2017-07-01 19:28 | DRG 470 ==
LOC: ER 11:41 → ERHOLD 13:39 → MED/SURG 20:18
PROVIDERS: ADMIT Internal Medicine; ATTEND Internal Medicine
PROC: 0SRS03Z Replacement of Left Hip Joint, Femoral Surface with Ceramic Synthetic Substitute, Open Approach (ICD-10-PCS; principal; 2017-06-25 12:00)
PROC: 30233N1 Transfusion of Nonautologous Red Blood Cells into Peripheral Vein, Percutaneous Approach (ICD-10-PCS; 2017-06-29)
PROC: 0DB68ZX Excision of Stomach, Via Natural or Artificial Opening Endoscopic, Diagnostic (ICD-10-PCS; 2017-07-01)
DX: S72.042A Displaced fracture of base of neck of left femur, initial encounter for closed fracture (principal); N39.0 Urinary tract infection, site not specified; E87.1 Hypo-osmolality and hyponatremia; F03.90 Unspecified dementia, unspecified severity, without behavioral disturbance, psychotic disturbance, mood disturbance, and anxiety; E83.42 Hypomagnesemia; E86.0 Dehydration; R33.9 Retention of urine, unspecified; I10 Essential (primary) hypertension; K21.9 Gastro-esophageal reflux disease without esophagitis; W18.30XA Fall on same level, unspecified, initial encounter; Y92.013 Bedroom of single-family (private) house as the place of occurrence of the external cause; Z88.1 Allergy status to other antibiotic agents; Z88.0 Allergy status to penicillin; Z88.2 Allergy status to sulfonamides; D50.9 Iron deficiency anemia, unspecified; F41.9 Anxiety disorder, unspecified; F32.9 Major depressive disorder, single episode, unspecified; E83.51 Hypocalcemia; Z87.440 Personal history of urinary (tract) infections; K20.9 Esophagitis, unspecified; K44.9 Diaphragmatic hernia without obstruction or gangrene; K29.70 Gastritis, unspecified, without bleeding
CPT/HCPCS: 36415; 43239; 51700; 72170; 80048; 80053; 81001; 82270; 82550; 82553; 82607; 82728; 82746; 83540; 83735; 84100; 84466; 84484; 85025; 85610; 85730; 86850; 86900; 86920; 87086; 88305; 88312; 93005; 97139; 99285; J0171; J0360; J1200; J1650; J1885; J2001; J2270; J2405; J2795; J2916; J3370; J7030; J7050; P9016

== ENCOUNTER 2017-07-14 19:39 | Inpatient (IN) | payer MEDICARE, BC ==
[~2017-07-14] VITALS: Ht 167.6 cm; Wt 64.4 kg
[~2017-07-14 19:39] MED LIST changes: +ACETAMINOPHEN325 M1 PO; +ACETAMINOPHEN650 MG PR; +ASCORBIC ACID500 MG PO; +CLONAZEPAM1 MG PO; +COLACE100 M1 PO; +Calcium Carbonate 500MG Chew PO; +Calcium Carbonate PO; +DEPAKOTE250 MG PO; +DIPHENHYDR50 MG/1 M1 IM/IV; +DIVALPROEX SOD250 MG PO; +DULCOLAX SUPP10 MG PR; +FAMOTIDINE20 MG PO; +FERROUS SULFAT325 MG PO; +LOVENOX30 MG/0.3 SC; +MAGNESIUM OXID400 MG PO; +Megestrol Acetate PO; +Multivitamins/Minerals PO; +PROMETHAZI25 MG/1 M2 IM; +QUETIAPINE FUMA25 MG PO; +SUCRALFATE1 G/10 ML NG; +ZINC SULFATE220 M1 PO
--- OUTSIDE RECORDS SUMMARY | 2017-07-14 19:43 | XMS REPORT | Continuity of Care Document ---
Author Author [facility] Organization [facility] Address [address] [place] [address] Phone Unavailable Care Team Providers Care Hydro Plant Operator Name Role Phone DONNIE REIS DO PCP Insurance Providers Guarantor JesseNatijovanna Worley Address [address] [place] [address] Email [email or web address] Payer Medicare A & B Policy Number [id number] Subscriber's Name Michael Chadwick Relationship 18 Self / Same As Patient Group Name UNEMPLOYED Effective Date 02 Payer [employer] Policy Number [id number] Subscriber's Name JesseSaleem Pond Relationship 01 Group Number [id number] Group Name RETIRED Effective Date 81 Advance Directives Directive Response Recorded Date/Time Does the patient have an advance directive? Yes 06/24/17 10:08pm If yes, is advance directive on file with [facility]? No 03/10/15 2:10am If not on file with [facility] will patient provide a copy? No 06/24/17 10:08pm Do you have a Directive to Physician? No 06/24/17 12:05pm Do you have a Medical Power of Shellfish Harvester? No 06/24/17 12:05pm Do you have an out of hospital Do Not Resuscitate Order? No 06/24/17 12:05pm Do you have any special needs we should be aware of? No 06/24/17 12:05pm Do you have a support person here with you today? Yes 06/24/17 12:05pm Did patient receive Notice of Privacy Practices? Yes 06/24/17 12:05pm Did patient receive patient rights and responsibilities? Yes 06/24/17 12:05pm Problems Medical Problem Onset Date Status Abdominal pain 03/10/2015 Acute Fx femoral neck Unknown Obstipation 03/10/2015 Acute Partial small bowel obstruction 03/10/2015 Acute SBO (small bowel obstruction) 10/07/2014 Acute Medications Current Home Medications Medication Dose Units Route Directions Days Qty Instructions Start Date Acetaminophen 325 Mg Tablet 650 Mg Oral Every 6 Hours as needed for Pain And Temperature 30 Days 07/01/17 Acetaminophen 650 Mg Supp 650 Mg Rectal Every 4 Hours as needed for Elevated Temperature 30 Days 07/01/17 Ascorbic Acid 500 Mg Tablet 500 Mg Oral Every 12 Hours 30 Days Bisacodyl (Dulcolax Supp*) 10 Mg Supp 10 Mg Rectal Daily as needed for Constipation 30 Days 07/01/17 Calcium Carbonate 500 Mg Tab 500 Mg Oral Three Times A Day 30 Days 07/01/17 Calcium Carbonate 500MG Chew 500 Mg Chew 500 Mg Oral Twice Daily With Meals 30 Days 07/01/17 Clonazepam 1 Mg Tablet 0.5 Mg Oral Every 12 Hours 30 Days 07/01/17 Diphenhydramine Hcl 50 Mg/1 Ml Vial 12.5 Mg Im/Iv Every 6 Hours as needed for Itching 30 Days 07/01/17 Divalproex Sodium (Depakote) 250 Mg Tabec 500 Mg Oral Every 12 Hours 30 Days 07/01/17 Docusate Sodium (Colace) 100 Mg Capsule 100 Mg Oral Three Times A Day 30 Days 07/01/17 Enoxaparin Sodium (Lovenox*) 30 Mg/0.3 Ml Inj 30 Mg Subcutaneously Every 12 Hours 28 Days 07/01/17 Famotidine 20 Mg Tab 20 Mg Oral Twice Daily Before Meals 30 Days Ferrous Sulfate 325 Mg Tablet 325 Mg Oral Every 12 Hours 30 Days Losartan Potassium 25 Mg Tablet 50 Mg Oral Daily Magnesium Oxide 400 Mg Tablet 400 Mg Oral Every 12 Hours 30 Days Megestrol Acetate 400 Mg/10 Ml Oral.susp 800 Mg Oral Bedtime 30 Days 07/01/17 Memantine Hcl (Namenda) 10 Mg Tablet 10 Mg Oral Twice A Day 30 Tab Memantine Hcl (Namenda) 10 Mg Tablet 10 Mg Oral Every 12 Hours 30 Days 07/01/17 Multivitamins/Minerals Tab 1 Oral Daily 30 Days 07/01/17 Polyethylene Glycol 3350 (Miralax) 17 Gm Powd.pack 1 Packet Oral Daily as needed for Constipation Polyethylene Glycol 3350 (Miralax) 17 Gm Powd.pack 17 Gm Oral Twice A Day as needed for Constipation 30 Days 07/01/17 Promethazine Hcl 25 Mg/1 Ml Vial 12.5 Mg Intramusc Every 6 Hours as needed for Nausea And Vomiting 30 Days 07/01/17 Sucralfate 1 G/10 Ml Susp 1 G Ng Tube Before Meals And At Bedtime 30 Days 07/01/17 Zinc Sulfate 220 Mg Capsule 220 Mg Oral Every 12 Hours 30 Days Past Home Medications Medication Directions Ordered Status Alprazolam , Discontinued Amitriptyline Hcl 25 Mg Tablet, 25 Mg Oral Daily Discontinued Aspirin (Aspirin Chew) 81 Mg Chew, 81 Mg Oral Daily Discontinued Clonazepam 1 Mg Tablet, 1 Mg Oral Twice A Day Discontinued Clonazepam 0.25 Mg Tab.rapdis, 0.25 Mg Oral Twice A Day as needed for Anxiety Discontinued Cyanocobalamin (Vitamin B-12) 1,000 Mcg Tab, 1000 Mcg Oral Daily Discontinued Divalproex Sodium 250 Mg Tablet.dr, 500 Mg Oral Twice A Day Discontinued Escitalopram Oxalate (Lexapro) 10 Mg Tablet, 10 Mg Oral Today At 6:00PM Discontinued Esomeprazole Magnesium (Nexium) 40 Mg Capsule.dr, 1 Tab Oral Daily Discontinued Furosemide (Lasix) 20 Mg Tablet, 20 Mg Oral As Needed for Feet Swelling Discontinued Furosemide , Discontinued Furosemide (Lasix) 20 Mg Tablet, 20 Mg Oral Daily Discontinued Gabapentin 100 Mg Capsule, 1 Cap Oral Twice A Day for Pain 10/08/14 Discontinued Iron,Carbonyl (Feosol) 45 Mg Tablet, 1 Tab Oral Daily Discontinued Losartan/Hydrochlorothiazide (Losartan-Hctz 50-12.5 Mg Tab) 1 Each Tablet, 1 Tab Peg Tube Daily Discontinued Nifedipine (Nifedipine Er) 30 Mg Tab.er.24, 60 Mg Oral Daily Discontinued Pantoprazole Sodium (Protonix) 40 Mg Tablet.dr, 40 Mg Oral Daily Discontinued Quetiapine Fumarate 25 Mg Tablet, 50 Mg Oral Twice A Day Discontinued Simvastatin 40 Mg Tablet, 40 Mg Oral Today At 9:00PM Discontinued Social History Social History Problem Response Recorded Date/Time Onset Date Status Hx Psychiatric Problems No 06/24/2017 10:08pm Not Applicable Not Applicable Hx Eating Disorder No 06/24/2017 10:08pm Not Applicable Not Applicable Hx Substance Use Disorder No 06/24/2017 10:08pm Not Applicable Not Applicable Hx Depression No 06/24/2017 10:08pm Not Applicable Not Applicable Hx Alcohol Use No 06/24/2017 10:08pm Not Applicable Not Applicable Hx Substance Use Treatment No 06/24/2017 10:08pm Not Applicable Not Applicable Hx Physical Abuse No 06/24/2017 10:08pm Not Applicable Not Applicable Smoking Status Start Date Stop Date Never Smoker Hospital Discharge Instructions No hospital discharge instruction information available. Plan of Care Discharge Date 07/01/17 7:28pm [facility]position [facility] Prescriptions See Medication Section Additional Instructions/Education GI Soft diet. Activities with assistance, encourage participation with PT. F/U with Dr. Loaiza & Regine, JAZMYN at [facility]. Functional Status Query Response Date Recorded FUNCTIONAL STATUS . June 25, 2017 5:13pm Assistive Devices Standard Walker June 24, 2017 10:16pm Ambulation Ability Independent June 24, 2017 10:16pm Toileting Ability Total Assistance July 01, 2017 7:03pm Allergies, Adverse Reactions, Alerts Allergen Type Severity Reaction Status Last Updated sulfur Allergy Unknown Active 06/24/17 Penicillin Allergy Mild Active 06/24/17 Triamcinolone Allergy Mild Active 06/24/17 Mometasone furoate Allergy Unknown Active 06/24/17 Cephalexin Allergy Mild Active 06/24/17 Azithromycin Allergy Mild Active 06/24/17 Immunizations No immunization information available. Vital Signs Acute Vital Signs Vital Response Date/Time Temperature (Fahrenheit) 99.7 degrees F (97.6 - 99.5) 07/01/2017 4:22pm Pulse Pulse Rate (adult) 108 bpm (60 - 90) 07/01/2017 4:22pm Respiratory Rate 18 bpm (12 - 24) 07/01/2017 4:22pm Blood Pressure 154/67 mm Hg 07/01/2017 4:22pm Height 5 ft 6 in 06/24/2017 11:56am Weight 141 lb 06/24/2017 11:56am Body Mass Index 22.8 kg/m^2 06/28/2017 2:05pm Results Laboratory Results Test Name Result Units Flags Reference Collection Date/Time Result Date/ Time Comments White Blood Count 7.93 x10e3/uL 4.8-10.8 07/01/2017 6:30am 07/01/2017 6 :50am Red Blood Count 3.46 x10e6/uL L 3.6-5.1 07/01/2017 6:3007/01/2017 6: 50am Hemoglobin 9.4 g/dL L 12.0-16.0 07/01/2017 6:30am 07/01/2017 6:50am Hematocrit 28.4 % L 34.2-44.1 07/01/2017 6:3007/01/2017 6:50am Mean Corpuscular Volume 82.1 fL 81-99 07/01/2017 6:30am 07/01/2017 6: 50am Mean Corpuscular Hemoglobin 27.2 pg L 28-32 07/01/2017 6:302017 6:50am Mean Corpuscular Hemoglobin Concent 33.1 g/dL 31-35 07/01/2017 6:3007/01/2017 6:50am Red Cell Distribution Width 19.6 % H 11.7-14.4 07/01/2017 6:302017 6:50am Platelet Count 201 x10e3/uL 140-360 07/01/2017 6:3007/01/2017 6: 50am Neutrophils (%) (Auto) 63.5 % 38.7-80.0 07/01/2017 6:3007/01/2017 6: 50am Lymphocytes (%) (Auto) 13.5 % L 18.0-39.1 07/01/2017 6:3007/01/2017 6 :50am Monocytes (%) (Auto) 13.1 % H 4.4-11.3 07/01/2017 6:3007/01/2017 6: 50am Eosinophils (%) (Auto) 7.7 % H 0.0-6.0 07/01/2017 6:30am 07/01/2017 6: 50am Basophils (%) (Auto) 0.4 % 0.0-1.0 07/01/2017 6:30am 07/01/2017 6:50am IM GRANULOCYTES % 1.8 % H 0.0-1.0 07/01/2017 6:3007/01/2017 6:50am Neutrophils # (Auto) 5.0 2.1-6.9 07/01/2017 6:3007/01/2017 6:50am Lymphocytes # (Auto) 1.1 1.0-3.2 07/01/2017 6:3007/01/2017 6:50am Monocytes # (Auto) 1.0 H 0.2-0.8 07/01/2017 6:30am 07/01/2017 6:50am Eosinophils # (Auto) 0.6 H 0.0-0.4 07/01/2017 6:07/01/2017 6: 50am Basophils # (Auto) 0.0 0.0-0.1 07/01/2017 6:30am 07/01/2017 6:50am Absolute Immature Granulocyte (auto 0.14 x10e3/uL H 0-0.1 07/01/2017 6: 30am 07/01/2017 6:50am Differential Total Cells Counted 100 06/30/2017 6:43am 06/30/2017 9 :33am Neutrophils % (Manual) 62 % 40-74 06/30/2017 6:43am 06/30/2017 9:33am Band Neutrophils % 2 % 06/30/2017 6:43am 06/30/2017 9:33am Lymphocytes % (Manual) 19 % 19-48 06/30/2017 6:43am 06/30/2017 9:33am Monocytes % (Manual) 10 % H 3.4-9.0 06/30/2017 6:43am 06/30/2017 9:33am Eosinophils % (Manual) 5 % 0-7 06/30/2017 6:43am 06/30/2017 9:33am Reactive Lymphocytes 2 06/30/2017 6:43am 06/30/2017 9:33am Platelet Estimate ADEQUATE 06/30/2017 6:43am 06/30/2017 9:33am Platelet Morphology Comment NORMAL 06/30/2017 6:43am 06/30/2017 9: 33am Hypochromasia SLIGHT 06/30/2017 6:43am 06/30/2017 9:33am Poikilocytosis SLIGHT 06/28/2017 6:20am 06/28/2017 9:24am Anisocytosis SLIGHT 06/30/2017 6:43am 06/30/2017 9:33am Red Cell Morphology Comment ABNORMAL 06/30/2017 6:43am 06/30/2017 9 :33am Prothrombin Time 12.7 seconds 11.9-14.5 06/24/2017 12:00pm 06/24/2017 12:18pm Prothromb Time International Ratio 1.03 06/24/2017 12:00pm 2017 12:18pm Oral Anticoagulant Therapy INR Values: 1. Low Intensity Therapy 1.5 - 2.0 2. Moderate Intensity Therapy 2.0 - 3.0 3. High Intensity Therapy(1) 2.5 - 3.5 4. High Intensity Therapy(2) 3.0 - 4.0 5. Panic Value INR > 5.0 Activated Partial Thromboplast Time 30.8 seconds 23.8-35.5 06/24/2017 12 :00pm 06/24/2017 12:18pm Urine Color YELLOW YELLOW 06/24/2017 12:00pm 06/24/2017 12:26pm Urine Clarity CLEAR CLEAR 06/24/2017 12:00pm 06/24/2017 12:26pm Urine Specific Dolores 1.015 1.010-1.025 06/24/2017 12:00pm 2017 12:26pm Urine pH 7 5 - 7 06/24/2017 12:00pm 06/24/2017 12:26pm Urine Leukocyte Esterase NEGATIVE NEGATIVE 06/24/2017 12:00pm 2017 12:26pm Urine Nitrite NEGATIVE NEGATIVE 06/24/2017 12:00pm 06/24/2017 12: 26pm Urine Protein NEGATIVE NEGATIVE 06/24/2017 12:00pm 06/24/2017 12: 26pm Urine Glucose (UA) NEGATIVE NEGATIVE 06/24/2017 12:00pm 06/24/2017 12 :26pm Urine Ketones NEGATIVE NEGATIVE 06/24/2017 12:00pm 06/24/2017 12: 26pm Urine Urobilinogen 0.2 mg/dL 0.2 - 1 06/24/2017 12:00pm 06/24/2017 12: 26pm Urine Bilirubin NEGATIVE NEGATIVE 06/24/2017 12:00pm 06/24/2017 12: 26pm Urine Blood NEGATIVE NEGATIVE 06/24/2017 12:00pm 06/24/2017 12:26pm Urine WBC 0-5 /HPF 0-5 06/24/2017 12:00pm 06/24/2017 12:26pm Urine RBC 0-5 /HPF 0-5 06/24/2017 12:00pm 06/24/2017 12:26pm Urine Bacteria FEW /HPF NONE 06/24/2017 12:00pm 06/24/2017 12:26pm Urine Epithelial Cells RARE /LPF NONE 06/24/2017 12:00pm 06/24/2017 12: 26pm Urine Amorphous Sediment FEW FEW 06/24/2017 12:00pm 06/24/2017 12: 26pm Sodium Level 138 mmol/L 136-145 07/01/2017 6:30am 07/01/2017 7:30am Potassium Level 3.8 mmol/L 3.5-5.1 07/01/2017 6:30am 07/01/2017 7:30am Chloride Level 104 mmol/L 98-107 07/01/2017 6:30am 07/01/2017 7:30am Carbon Dioxide Level 29 mmol/L 22-07/01/2017 6:30am 07/01/2017 7: 30am Anion Gap 8.8 mmol/L 8-07/01/2017 6:30am 07/01/2017 7:30am Blood Urea Nitrogen 18 mg/dL 10-0907/01/2017 6:30am 07/01/2017 7:30am Creatinine 0.62 mg/dL 0.57-1.11 07/01/2017 6:30am 07/01/2017 7:30am BUN/Creatinine Ratio 29 H 6-07/01/2017 6:30am 07/01/2017 7:30am Estimat Glomerular Filtration Rate > 60 ML/MIN 60- 07/01/2017 6:30am 7:30am Ranges were taken from the National Kidney Disease Education Program and the National Kidney Foundation literature. Reference ranges: 60 or greater: Normal 16-59 (for 3 consecutive months): Chronic kidney disease 15 or less: Kidney failure Glucose Level 95 mg/dL 74-118 07/01/2017 6:30am 07/01/2017 7:30am Calcium Level 8.4 mg/dL 8.4-10.2 07/01/2017 6:30am 07/01/2017 7:30am Phosphorus Level 3.0 MG/DL 2.3-4.7 06/28/2017 6:20am 06/28/2017 7:19am Magnesium Level 1.5 MG/DL 1.3-2.1 07/01/2017 6:30am 07/01/2017 7:38am Iron Level 10 ug/dL L 50-170 06/27/2017 6:24am 06/27/2017 6:59am Total Iron Binding Capacity 196 ug/dL L 261-478 06/27/2017 6:24am 2017 6:59am Percent Iron Saturation 5 % L 15-50 06/27/2017 6:24am 06/27/2017 6:59am Transferrin 140 mg/dL L 180-382 06/27/2017 6:24am 06/27/2017 6:59am Ferritin 93.94 ng/mL 4.63-204.00 06/27/2017 6:24am 06/27/2017 7:18am Total Bilirubin 0.4 mg/dL 0.2-1.2 06/24/2017 12:00pm 06/24/2017 12: 26pm Aspartate Amino Transf (AST/SGOT) 31 IU/L 5-34 06/24/2017 12:00pm 06/24 12:26pm Alanine Aminotransferase (ALT/SGPT) 20 IU/L 0-55 06/24/2017 12:00pm 12/2017 12:26pm Total Protein 6.6 g/dL 6.5-8.1 06/24/2017 12:00pm 06/24/2017 12:26pm Albumin 3.7 g/dL 3.5-5.0 06/24/2017 12:00pm 06/24/2017 12:26pm Globulin 2.9 g/dL 2.3-3.5 06/24/2017 12:00pm 06/24/2017 12:26pm Albumin/Globulin Ratio 1.3 0.8-2.0 06/24/2017 12:00pm 06/24/2017 12: 26pm Alkaline Phosphatase 80 IU/L 40-150 06/24/2017 12:00pm 06/24/2017 12: 26pm Creatine Kinase 166 IU/L 29-168 06/24/2017 12:00pm 06/24/2017 12:26pm Creatine Kinase MB 3.60 ng/mL 0-5.0 06/24/2017 12:00pm 06/24/2017 12: 36pm Troponin I < 0.001 ng/mL 0-0.300 06/24/2017 12:00pm 06/24/2017 12:36pm Vitamin B12 Level 1816 pg/mL H 213-816 06/27/2017 6:24am 06/27/2017 7: 32am Folate 16.7 ng/mL H 7.0-15.4 06/27/2017 6:24am 06/27/2017 7:32am Stool Occult Blood POSITIVE H NEGATIVE 06/29/2017 10:18pm 06/30/2017 8 :58am Procedures Procedure Status Date Provider(s) Hemiarthroplasty of left hip Completed 06/25/17 LEXIE CHANG MD EGD with biopsy Completed 07/01/17 ANAM FISCHER MD Encounters Encounter Location Arrival/Admit Date Discharge/Depart Date Attending Provider Discharged Inpatient [facility] 06/24/17 1:39pm 07/01/17 7:28pm AI LOAIZA MD
[2017-07-14] MEDS ORDERED: ONDANSETRON HCL INJ 2 MG/ML VIAL IV STA (20:51)
[2017-07-14] MEDS ORDERED: SODIUM CHLORIDE 0.9% 1000ML 1,000 ML IV STA ×2 (20:51→23:00)
--- NOTE | 2017-07-14 21:50 | Diagnostic Imaging Report ---
EXAM: CHEST SINGLE (PORTABLE), AP 1 view INDICATION: Hip replacement 2 weeks ago, lower abdominal pain COMPARISON: AP view of the chest October 07, 2014 FINDINGS: LINES/TUBES: None LUNGS: No consolidations or edema. PLEURA: No effusions or pneumothorax. HEART AND MEDIASTINUM: Normal size and contour. BONES AND SOFT TISSUES: No acute findings. IMPRESSION: No acute thoracic abnormality. Signed by: Dr. Bibiana Carranza M.D. on 07/14/2017 9:46 PM
[2017-07-14 22:00] LABS: BASOPHILS % 0.2 % (0.0-1.0); EOSINOPHILS % 0.3 % (0.0-6.0); HEMATOCRIT 31.9 % (34.2-44.1); HEMOGLOBIN 10.1 g/dL (12.0-16.0); LYMPHOCYTES % 8.7 % (18.0-39.1); MEAN CORPUSCULAR HEMOGLOBIN 27.4 pg (28-32); MEAN CORPUSCULAR HGB CONC 31.7 g/dL (31-35); MEAN CORPUSCULAR VOLUME 86.4 fL (81-99); MONOCYTES # (AUTO) 0.9 (0.2-0.8); MONOCYTES % 7.9 % (4.4-11.3); NEUTROPHILS # (AUTO) 9.1 (2.1-6.9); NEUTROPHILS % 82.5 % (38.7-80.0); PLATELET COUNT 509 x10e3/uL (140-360); RED BLOOD COUNT 3.69 x10e6/uL (3.6-5.1); RED CELL DISTRIBUTION WIDTH 20.8 % (11.7-14.4)
[2017-07-14 22:08] LABS: CLARITY,URINE CLEAR (CLEAR); COLOR,URINE YELLOW (YELLOW); LEUKOCYTE ESTERASE ,URINE TRACE (NEGATIVE); NITRITE,URINE NEGATIVE (NEGATIVE); PROTEIN,URINE DIPSTICK 1+ (NEGATIVE)
[2017-07-14 22:09] LABS: BILIRUBIN,URINE NEGATIVE (NEGATIVE); KETONES,URINE 1+ (NEGATIVE); URINE UROBILINOGEN 0.2 mg/dL (0.2 - 1)
[2017-07-14 22:18] LABS: ALANINE AMINOTRANSFERASE 22 IU/L (0-55); ALBUMIN 2.6 g/dL (3.5-5.0); ALBUMIN/GLOBULIN RATIO 0.9 (0.8-2.0); ALKALINE PHOSPHATASE 93 IU/L (40-150); ANION GAP 11.6 mmol/L (8-16); BLOOD UREA NITROGEN 22 mg/dL (7-26); BUN/CREATININE RATIO 34 (6-25); CALCIUM 9.1 mg/dL (8.4-10.2); CARBON DIOXIDE 26 mmol/L (22-29); CHLORIDE 108 mmol/L (98-107); CREATININE, SERUM 0.64 mg/dL (0.57-1.11); EST GLOMERULAR FILTRATION RATE > 60 ML/MIN (60-); GLUCOSE 144 mg/dL (74-118); LIPASE 30 U/L (8-78); POTASSIUM 3.6 mmol/L (3.5-5.1); SODIUM 142 mmol/L (136-145)
[2017-07-14 22:21] LABS: BACTERIA,URINE FEW /HPF; EPITHELIAL CELLS,URINE RARE /LPF; MUCUS,URINE FEW (RARE)
[2017-07-14] MEDS ORDERED: SODIUM CHLORIDE 0.9% 1000ML 1,000 ML ONE (22:52)
[2017-07-14] MEDS ORDERED: DIATRIZOATE MEGL/DIATRIZOA SOD 30 ML BTL PO ONE (23:00)
[2017-07-15] VITALS (8 sets, daily range): BP systolic 130–196; BP diastolic 55–80
--- NOTE | 2017-07-15 00:13 | Diagnostic Imaging Report ---
EXAM: CT ABDOMEN AND PELVIS with IV CONTRAST DATE: 07/14/2017 10:51 PM Time stamp on Exam: 2340 hours INDICATION: Abdominal pain, left hip surgery approximately 2 weeks ago, possible constipation COMPARISON: CT of the abdomen and pelvis June 28, 2016 TECHNIQUE: The abdomen and pelvis were scanned using a multidetector helical scanner. Coronal and sagittal reformations were obtained. Routine protocol performed. IV Contrast: 100 cc Isovue-370 Oral Contrast: None CTDIvol has been reviewed. It is below the limits set by the Radiation Protocol Committee (RPC). FINDINGS: LOWER THORAX: No consolidations LIVER: No masses BILIARY: The gallbladder is unremarkable. No ductal dilation. SPLEEN: No masses PANCREAS: No masses ADRENALS: No nodules KIDNEYS: Symmetric perfusion. No enhancing masses. No hydronephrosis. GI TRACT: Large amount of retained stool with rectal distention to 8.5 cm. Sigmoid colon diverticulosis without evidence of diverticulitis. Surgical sutures around the descending colon. No small bowel dilation. VESSELS: Moderate atherosclerotic changes of the abdominal aorta and branches without aneurysm. PERITONEUM/RETROPERITONEUM: No free air or fluid LYMPH NODES: No lymphadenopathy REPRODUCTIVE ORGANS: Calcified uterine fibroid. BLADDER: Decompressed by Yu catheter. SOFT TISSUES: Mild amount of subcutaneous emphysema in the left anterior abdomen, possibly from injection sites. Small to moderate hematoma along the left hip surgical site. BONES: Surgical changes of left hip arthroplasty. Advanced degenerative changes and rotatory scoliosis of the lumbar spine. IMPRESSION: 1. Large amount of retained colonic stool with likely rectal fecal impaction. 2. Surgical changes of recent left hip arthroplasty with small to moderate hematoma along the surgical incision site. Dedicated x-rays of the left hip to include surgical hardware are recommended when clinically feasible as database administrator image suggests intramedullary component is angled towards the medial cortex. This may be projectional. Signed by: Dr. Bibiana Carranza M.D. on 07/15/2017 12:09 AM
[2017-07-15] MEDS ORDERED: LEVOFLOXACIN 250MG/D5W 50ML 50 ML IV ONE (00:15)
[2017-07-15] MEDS ORDERED: IOPAMIDOL 370 MG/ML 200 ML INFUS..BTL INJ ONE (00:20)
[2017-07-15] MEDS ORDERED: SODIUM CHLORIDE 0.9% 250ML 250 ML ONE (00:20)
[2017-07-15] MEDS ORDERED: MAGNESIUM HYDROXIDE 30 ML UDC PO PRN (01:00)
[2017-07-15] MEDS: SODIUM CHLORIDE 0.9% 1000ML 1,000 ML IV SCH ×4 (01:04→20:37)
[2017-07-15] MEDS: LEVOFLOXACIN 500MG/D5W 100ML IV SCH ×2 (01:04→23:39)
[2017-07-15] MEDS ORDERED: COLACE100 MG PO (03:26)
[2017-07-15] MEDS ORDERED: ZOFRAN ODT4 MG PO (03:26)
[2017-07-15] MEDS ORDERED: COZAAR25 MG PO (03:26)
[2017-07-15] MEDS ORDERED: OYSTER SHELL C1 EA12 PO (03:26)
[2017-07-15] MEDS ORDERED: CARAFATE1 GM/10 ML PO (03:26)
[2017-07-15] MEDS ORDERED: ENULOSE10 GM/15 M PO (03:26)
[2017-07-15] MEDS ORDERED: MULTIVITAMINS1 EAC6 PO (03:26)
[2017-07-15] MEDS ORDERED: CALCIUM 500+D1 EACH PO (03:26)
[2017-07-15] MEDS ORDERED: LOVENOX60 MG/0.6 SC (03:26)
[2017-07-15] MEDS ORDERED: DEPAKOTE ER500 MG PO (03:26)
[2017-07-15] MEDS ORDERED: BENADRYL25 M1 PO (03:26)
[2017-07-15] MEDS ORDERED: MEGESTROL400 MG/10 PO (03:26)
[2017-07-15] MEDS ORDERED: HYDRALAZINE HCL 20 MG/ML VIAL IV ONE (03:30)
[2017-07-15] MEDS ORDERED: HYDRALAZINE HCL 20 MG/ML VIAL ONE (03:32)
[2017-07-15] MEDS ORDERED: HYDRALAZINE HCL 20 MG/ML VIAL IV STA (08:43)
[2017-07-15] MEDS ORDERED: SOD PHOSPHATE/SOD BIPHOSPHATE ENEMA 132 ML BTL PR NR (10:30)
[2017-07-15] MEDS ORDERED: DIPHENHYDRAMINE HCL 30 GM TUBE TOP PRN (12:15)
--- NOTE | 2017-07-15 14:37 | Consultation ---
DATE OF CONSULTATION: July 15, 2017 REASON FOR CONSULTATION: UTI, abdominal pain. Thank you so much for asking me to see this patient. HISTORY OF PRESENT ILLNESS: This patient is an 82-year-old white female who has history of dementia and does not really provide any meaningful information. History was taken mainly from her caregiver. The caregiver is telling me that [facility]; but in the last 1 to 2 weeks, she started to have abdominal pain. She was diagnosed with UTI, and she was given antibiotic for 5 days. She is not so sure of it; but according to the record, the patient has been on Levaquin. The patient continued to have abdominal pain, pointing to her whole abdomen and suprapubic area, so the patient was transferred here. The patient was evaluated in the emergency room and admitted. This patient has a history of hypertension and history of dementia. PAST SURGICAL HISTORY: Unknown at the present time. ALLERGIES: NKA. SOCIAL HISTORY: No smoking, drug abuse or alcohol abuse. FAMILY HISTORY: Noncontributory. PAST MEDICAL HISTORY: According to the record, she has history of intracapsular fracture of the left femur, history of essential hypertension, history of dementia, history of gastroesophageal reflux disease, history of muscle wasting and atrophy, history of difficulty walking. REVIEW OF SYSTEMS: From the caregiver, there are no visual changes or hearing changes that she can think of. No nausea, no vomiting, no diarrhea. No urgency or frequency, but the patient kept complaining of abdominal pain. Her joints have no erythema or edema, but she is weak. ALLERGIES: PENICILLIN, AZITHROMYCIN, CEPHALEXIN AND SULFA. LABORATORY DATA: White count 11.04, hemoglobin 10, hemoglobin 31, platelets 509. Sodium 142, potassium 3.6, creatinine 0.64, glucose 144. AST 21, ALT 22, lipase 30. Urine showed protein, ketones, blood, 11-20 WBCs. Culture is still pending. Patient had a CT of abdomen and pelvis when she first came here which showed large amount of colonic stool with fecal impaction. Surgical change of recent left hip arthroplasty with small to moderate hematoma. Recommend left hip x-ray. No acute finding on the chest x-ray. PHYSICAL EXAMINATION GENERAL: She is alert and confused. VITALS: Stable, currently afebrile. HEENT: She is not icteric. NECK: Supple. CHEST: Clear bilaterally. COR: S1 and S2. ABDOMEN: Soft. Diffuse discomfort. EXTREMITIES: No edema or skin rash. IMPRESSION 1. Abdominal pain. May be a urinary tract infection, but I am concerned about constipation, which may be early small ileus. I would recommend to put her on Rocephin and to give laxative of choice and IV fluids. 2. Dementia. 3. May need an enema. Will follow. Job#: [id number]
[2017-07-15] MEDS ORDERED: MINERAL OIL 132 ML BTL PR ONE ×2 (16:15→17:00)
[2017-07-15] MEDS: CLONAZEPAM 1 MG TAB PO PRN (19:52)
[2017-07-15] MEDS ORDERED: BISACODYL 5 MG TAB EC PO ONE (20:00)
[2017-07-15] MEDS ORDERED: CITRATE OF MAGNESIA 300ML BOTTLE PO ONE (20:00)
[2017-07-15] MEDS ORDERED: PEG (High)/E-LYTE SOLN 4,000 ML BTL PO ONE (20:00)
[2017-07-15] MEDS: HYDRALAZINE HCL 20 MG/ML VIAL IV PRN (20:33)
--- NOTE | 2017-07-15 20:53 | Consultation ---
DATE OF CONSULTATION: July 15, 2017 This is an 82-year-old female who has history of dementia, apparently had hip replacement surgery, has been on rehab unit at the [facility]. She apparently presented to the hospital because of abdominal pain which is mainly in the lower abdominal area along with some constipation. There is no history of bleeding or nausea or vomiting, along with the problem. Her workup so far revealed the labs show the white count is a little bit high of 11.4 and hemoglobin is a little bit low at 10.1. Chemistry was okay. She had a CAT scan of the abdomen and pelvis which showed large amount of retained colonic stool with possible fecal impaction. Her last colonoscopy apparently was quite some time ago. Her other medical problem again is significant for history of dementia, also status post hip replacement. ALLERGIES: NONE. CURRENT MEDICATIONS: Antibiotics for possible UTI. Clonazepam as needed. SOCIAL HISTORY: No alcohol use. FAMILY HISTORY: Noncontributory. REVIEW OF SYSTEMS: Denies any chest pain. Denies any shortness of breath. Denies any dysphagia or odynophagia. Denies any dysuria or hematuria or any kind of syncopal episode. PHYSICAL EXAMINATION GENERAL: The patient is awake, alert, appears to be stable and not in any acute distress. VITAL SIGNS: Afebrile currently with stable vital signs. HEENT: Normocephalic, atraumatic. Sclerae anicteric. NECK: Supple. HEART: Sounds regular. LUNGS: Clear. ABDOMEN: Soft. There is tenderness in the lower abdominal area, mostly in the left lower area. There is no rebound or mass. EXTREMITIES: No edema or clubbing. LABORATORY DATA: BUN 22, creatinine 0.64, WBC 11.4, hemoglobin 10.1, hematocrit ___, MCV is normal. CAT scan as mentioned before. IMPRESSION: 1. Abdominal pain. The patient has significant constipation with possible fecal impaction. 2. Anemia. 3. Dementia. RECOMMENDATIONS: Continue current care at this point. Colon cleansing. The patient may benefit from colonoscopy. At this point, the family is not sure about that. We will continue to monitor, but I will go ahead and give her GoLYTELY as well as magnesium citrate to try and clean her colon. Job#: [id number] cc:CORBY CHANG MD cc:DONNIE REIS M.D.
[2017-07-16] VITALS (7 sets, daily range): BP systolic 152–170; BP diastolic 62–77
[2017-07-16 06:38] LABS: BASOPHILS % 0.3 % (0.0-1.0); EOSINOPHILS # (AUTO) 0.2 (0.0-0.4); EOSINOPHILS % 2.9 % (0.0-6.0); HEMATOCRIT 26.6 % (34.2-44.1); HEMOGLOBIN 8.5 g/dL (12.0-16.0); LYMPHOCYTES # (AUTO) 0.9 (1.0-3.2); LYMPHOCYTES % 14.2 % (18.0-39.1); MEAN CORPUSCULAR HEMOGLOBIN 27.4 pg (28-32); MEAN CORPUSCULAR VOLUME 85.8 fL (81-99); MONOCYTES # (AUTO) 0.5 (0.2-0.8); MONOCYTES % 8.2 % (4.4-11.3); NEUTROPHILS # (AUTO) 4.8 (2.1-6.9); NEUTROPHILS % 74.2 % (38.7-80.0); PLATELET COUNT 387 x10e3/uL (140-360)
[2017-07-16 07:12] LABS: ALANINE AMINOTRANSFERASE 16 IU/L (0-55); ALBUMIN 2.2 g/dL (3.5-5.0); ALBUMIN/GLOBULIN RATIO 0.9 (0.8-2.0); ALKALINE PHOSPHATASE 72 IU/L (40-150); ANION GAP 10.9 mmol/L (8-16); BLOOD UREA NITROGEN 12 mg/dL (7-26); BUN/CREATININE RATIO 24 (6-25); CALCIUM 8.3 mg/dL (8.4-10.2); CARBON DIOXIDE 21 mmol/L (22-29); CHLORIDE 108 mmol/L (98-107); EST GLOMERULAR FILTRATION RATE > 60 ML/MIN (60-); GLUCOSE 90 mg/dL (74-118); LIPASE 31 U/L (8-78); SODIUM 137 mmol/L (136-145)
[2017-07-16 07:24] LABS: POTASSIUM 2.9 mmol/L (3.5-5.1)
[2017-07-16] MEDS: HYDRALAZINE HCL 20 MG/ML VIAL IV PRN ×2 (08:15→20:52)
[2017-07-16] MEDS ORDERED: POTASSIUM CHLORIDE 20MEQ/15ML UDC PO ONE (09:00)
--- NOTE | 2017-07-16 09:43 | Progress Note ---
DATE: July 16, 2017 Ms. Molina is an 82-year-old female with history of hip replacement, hypertension, dementia, and reflux, who was at [facility]. She was sent to [facility] because the patient has been constipated. She has been dehydrated, and apparently she has a history of prior UTI and some changes in mental status. She was brought here. She was started on IV antibiotics and IV fluids. PHYSICAL EXAMINATION GENERAL: Today, she is more awake and alert. VITALS: Temperature 98.8. Blood pressure 166/75. O2 saturation is 98%. Respiratory rate is 16. HEART: Regular rate. LUNGS: Poor inspiratory effort. ABDOMEN: Distended and soft. LABS: On the blood work, potassium was 2.9 today. Creatinine 0.50. Glucose is 90. White count is 6.49, hemoglobin 8.5, hematocrit 26.6. Chest x-ray does not show any acute findings. CT scan shows a large amount of colonic stools. Some surgical changes from recent left hip arthroplasty. ASSESSMENT AND PLAN 1. Metabolic encephalopathy, probably due to infection. 2. Urinary tract infection. 3. Dementia. 4. Constipation. 5. Uncontrolled hypertension. 6. Left hip hematoma status post arthroplasty. 7. Hypokalemia. The plan at the present time is to continue clear liquid diet, continue IV antibiotics. The patient is going to go for a colonoscopy tomorrow. She was already evaluated by Dr. Alvarado. She is going to follow up as an outpatient. We are going to continue to monitor mental status and monitor white count and red cells as well as potassium. All of this was discussed with the patient and daughter at bedside. All questions were answered to satisfaction. Job#: [id number]
--- NOTE | 2017-07-16 10:32 | Consultation ---
DATE OF CONSULTATION: July 16, 2017 REASON FOR CONSULTATION: Status post left hip hemiarthroplasty. HISTORY OF PRESENT ILLNESS: This patient is an 82-year-old female who recently underwent a left hip hemiarthroplasty under our service on June 25, 2017. She was recently seen in my office for a postoperative visit, and there were no orthopedic issues or wound complications noted at that time. The patient was recently readmitted for dehydration and confusion. She was found to have a urinary tract infection. Given her recent surgery, we were consulted. PHYSICAL EXAMINATION: In general, she exhibits signs of advanced dementia. She has difficulty answering questions and appears confused. She is awake and sitting up. She is eating breakfast with assistance. She is in no apparent distress and does not appear agitated. Focused exam: Gross inspection of her left upper thigh shows her left hip incision is well healed. There is some mild swelling. There is no bruising or erythema. She has uncomfortable passive range of motion of the right hip. Distal neurovascular exam is grossly intact. ASSESSMENT AND PLAN: This is an 82-year-old female who is roughly 2-1/2 weeks out status post left hip hemiarthroplasty. She is admitted for urinary tract infection, dehydration and possible ileus. She is being worked up by GI and urology. From an orthopaedic perspective, everything looks good with regards to the left hip hemiarthroplasty. Her wound is well healed. Recommend mobilizing with physical therapy. She can weight bear as tolerated on the left side. No further inpatient orthopedic workup or intervention is needed at this time. I instructed her daughter to have her return at her regular followup. Dictated by Oscar Peres PA-C. Job#: [id number]
[2017-07-16] MEDS ORDERED: POTASSIUM CHLORIDE 20MEQ/15ML UDC NG NR ×2 (14:00→17:00)
[2017-07-16 16:15] LABS: CLARITY,URINE CLEAR (CLEAR); COLOR,URINE STRAW (YELLOW); LEUKOCYTE ESTERASE ,URINE NEGATIVE (NEGATIVE); NITRITE,URINE NEGATIVE (NEGATIVE); PROTEIN,URINE DIPSTICK NEGATIVE (NEGATIVE)
[2017-07-16 16:16] LABS: KETONES,URINE 1+ (NEGATIVE)
[2017-07-16 16:17] LABS: BILIRUBIN,URINE NEGATIVE (NEGATIVE); URINE UROBILINOGEN 0.2 mg/dL (0.2 - 1)
[2017-07-16 16:24] LABS: WBC,URINE (MAN) 0-5 /HPF (0-5)
[2017-07-16 16:25] LABS: CALCIUM OXALATE CRYSTALS,UR RARE (FEW); EPITHELIAL CELLS,URINE RARE /LPF
[2017-07-16] MEDS: SODIUM CHLORIDE 0.9% 1000ML 1,000 ML IV SCH ×2 (16:28→17:20)
[2017-07-16] MEDS ORDERED: BISACODYL 5 MG TAB EC PO ONE (20:30)
[2017-07-16] MEDS: CLONAZEPAM 1 MG TAB PO PRN (20:51)
[2017-07-17] VITALS: BP 172/69
[2017-07-17] MEDS: LEVOFLOXACIN 500MG/D5W 100ML IV SCH ×2 (00:25→04:45)
[2017-07-17] MEDS: SODIUM CHLORIDE 0.9% 1000ML 1,000 ML IV SCH ×3 (02:00→17:07)
[2017-07-17 04:00] VITALS: BP 203/88
[2017-07-17] MEDS: HYDRALAZINE HCL 20 MG/ML VIAL IV PRN (04:46)
[2017-07-17 06:44] LABS: ANION GAP 11.3 mmol/L (8-16); BLOOD UREA NITROGEN 7 mg/dL (7-26); BUN/CREATININE RATIO 15 (6-25); CALCIUM 8.5 mg/dL (8.4-10.2); CARBON DIOXIDE 21 mmol/L (22-29); CHLORIDE 107 mmol/L (98-107); CREATININE, SERUM 0.46 mg/dL (0.57-1.11); EST GLOMERULAR FILTRATION RATE > 60 ML/MIN (60-); GLUCOSE 90 mg/dL (74-118); POTASSIUM 3.3 mmol/L (3.5-5.1); SODIUM 136 mmol/L (136-145)
[2017-07-17] MEDS ORDERED: POTASSIUM CHLORIDE 20 MEQ TAB CR PO STA (06:53)
[2017-07-17] MEDS ORDERED: SOD PHOSPHATE/SOD BIPHOSPHATE ENEMA 132 ML BTL PR ONE ×2 (07:00)
[2017-07-17 08:00] VITALS: BP 134/63
--- NOTE | 2017-07-17 09:58 | Progress Note ---
DATE: July 17, 2017 SUBJECTIVE: Ms. Molina is 82-year-old female with history of recent hip surgery, hypertension, dementia, reflux, sent from the [facility] because she was not eating. She was constipated and dehydrated. She was started on IV antibiotics, IV fluids, and she is going to go for a colonoscopy today. PHYSICAL EXAMINATION: GENERAL: She is awake. VITAL SIGNS: Temperature is 98, blood pressure is elevated 200/88. HEART: Regular rate. LUNGS: Clear to auscultation. ABDOMEN: Distended and soft. BLOOD WORK: White count 6.49, hemoglobin 8.5, hematocrit 26.6. Potassium 3.3, creatinine is 0.46, BUN is 7, glucose is 90. ASSESSMENT: 1. Metabolic encephalopathy, resolving. 2. Probable urinary tract infection. 3. Dementia. 4. Constipation with rectal impaction. 5. Uncontrolled hypertension. 6. Status post left hip replacement. 7. Hypokalemia. PLAN: At present time is to replete potassium. Continue IV antibiotics. She is going to go for a colonoscopy today. We are going to have to give her something to get her blood pressure stable and then will adjust the p.o. medications. All this was discussed with son at bedside. All questions were answered to satisfaction. Job#: [id number]
[2017-07-17 12:00] VITALS: BP 147/72
[2017-07-17 16:00] VITALS: BP 155/68
[2017-07-17] MEDS ORDERED: FENTANYL CITRATE/PF 100MCG/2 ML INJ ONE (16:58)
[2017-07-17] MEDS: POLYETHYLENE GLYCOL 3350 17 GM PACK PO SCH (17:06)
[2017-07-17] MEDS ORDERED: PROPOFOL IV EMULSION 10 MG/ML 20 ML VIAL IV ONE (17:11)
[2017-07-17] MEDS: CLONAZEPAM 1 MG TAB PO PRN (19:46)
[2017-07-17 20:00] VITALS: BP 147/73
[2017-07-18] VITALS: BP 196/75
[2017-07-18] MEDS: SODIUM CHLORIDE 0.9% 1000ML 1,000 ML IV SCH ×3 (00:28→16:28)
[2017-07-18] MEDS: HYDRALAZINE HCL 20 MG/ML VIAL IV PRN (01:00)
[2017-07-18 04:00] VITALS: BP 167/77
[2017-07-18 05:53] LABS: BASOPHILS % 0.2 % (0.0-1.0); EOSINOPHILS # (AUTO) 0.2 (0.0-0.4); EOSINOPHILS % 5.2 % (0.0-6.0); HEMATOCRIT 28.8 % (34.2-44.1); HEMOGLOBIN 9.3 g/dL (12.0-16.0); LYMPHOCYTES % 21.6 % (18.0-39.1); MEAN CORPUSCULAR HEMOGLOBIN 27.9 pg (28-32); MEAN CORPUSCULAR HGB CONC 32.3 g/dL (31-35); MEAN CORPUSCULAR VOLUME 86.5 fL (81-99); MONOCYTES # (AUTO) 0.4 (0.2-0.8); MONOCYTES % 9.1 % (4.4-11.3); NEUTROPHILS # (AUTO) 2.8 (2.1-6.9); NEUTROPHILS % 63.7 % (38.7-80.0); PLATELET COUNT 369 x10e3/uL (140-360); RED BLOOD COUNT 3.33 x10e6/uL (3.6-5.1); RED CELL DISTRIBUTION WIDTH 19.8 % (11.7-14.4)
[2017-07-18 06:24] LABS: ANION GAP 10.4 mmol/L (8-16); BLOOD UREA NITROGEN 6 mg/dL (7-26); BUN/CREATININE RATIO 12 (6-25); CALCIUM 8.8 mg/dL (8.4-10.2); CARBON DIOXIDE 23 mmol/L (22-29); CHLORIDE 109 mmol/L (98-107); CREATININE, SERUM 0.51 mg/dL (0.57-1.11); EST GLOMERULAR FILTRATION RATE > 60 ML/MIN (60-); GLUCOSE 95 mg/dL (74-118); POTASSIUM 3.4 mmol/L (3.5-5.1); SODIUM 139 mmol/L (136-145)
[2017-07-18 08:00] VITALS: BP 139/71
[2017-07-18] MEDS: POLYETHYLENE GLYCOL 3350 17 GM PACK PO SCH (08:52)
--- NOTE | 2017-07-18 09:57 | Discharge Summary ---
Ms. Molina is an 82-year-old female with recent hip surgery, history of dementia, hypertension, GI reflux, who was at [facility], and she was sent to [facility] because she was constipated. She was not eating and she was dehydrated. When she came here, she was empirically started on IV antibiotics since she has a history of prior UTIs and on IV fluids. CT showed rectal impaction. Had a colonoscopy done yesterday that showed diverticulosis, uncomplicated hemorrhoids and rectal ulcer. Biopsies were taken. PHYSICAL EXAMINATION GENERAL: Today, she is awake, but she is disoriented. She is a demented person. VITALS: Temperature is 98.2, blood pressure 167/77. HEART: Regular rate. LUNGS: Clear to auscultation. ABDOMEN: Soft. BLOOD WORK: Potassium is 3.4, creatinine is 0.51, glucose is 95. White count is 4.4, hemoglobin 9.3, hematocrit 28.8. DISCHARGE DIAGNOSES 1. Metabolic encephalopathy, resolved. 2. Dementia. 3. Constipation with rectal impaction. 4. Uncontrolled hypertension. 5. Status post hip replacement. 6. Hypokalemia. 7. Uncomplicated internal hemorrhoids. 8. Diverticulosis. 9. Rectal ulcer. PLAN: At the present time, is to discontinue antibiotics since the urine culture has been negative. We are going to discharge the patient back to the [facility] if it is okay with the consultants. We are going to discontinue all the antibiotics. We are going to continue the care home medications. All of this was discussed with the patient, caregiver, , and son. All questions were answered to satisfaction. Please see home medication reconciliation list. CORBY CHANG MD Job#: [id number] OR
[2017-07-18] MEDS ORDERED: POTASSIUM CHLORIDE 10 MEQ TABCR PO ONE (12:15)
[2017-07-18 17:02] VITALS: BP 142/63
== END 2017-07-18 18:04 | DRG 689 ==
LOC: ER 19:39 → ERHOLD 07-15 01:26 → IMCU 07-15 03:40 → OBSVTOIN 07-16 12:18 → MED/SURG2 07-16 17:59
PROVIDERS: ADMIT Internal Medicine; ATTEND Internal Medicine
PROC: 0DJD8ZZ Inspection of Lower Intestinal Tract, Via Natural or Artificial Opening Endoscopic (ICD-10-PCS; principal; 2017-07-17 13:30)
DX: N39.0 Urinary tract infection, site not specified (principal); G93.41 Metabolic encephalopathy; M96.840 Postprocedural hematoma of a musculoskeletal structure following a musculoskeletal system procedure; K62.6 Ulcer of anus and rectum; K57.30 Diverticulosis of large intestine without perforation or abscess without bleeding; E86.0 Dehydration; F03.90 Unspecified dementia, unspecified severity, without behavioral disturbance, psychotic disturbance, mood disturbance, and anxiety; D64.9 Anemia, unspecified; E87.6 Hypokalemia; K64.8 Other hemorrhoids; K56.41 Fecal impaction; I10 Essential (primary) hypertension; Z96.642 Presence of left artificial hip joint; K21.9 Gastro-esophageal reflux disease without esophagitis
CPT/HCPCS: 36415; 45378; 71045; 74177; 80048; 80053; 80164; 81001; 82948; 83690; 84132; 85025; 87040; 87086; 93005; 97139; 99284; G0378; J0360; J1956; J7030; J7050; Q9967